=== PATIENT | male | born 1960 | race Caucasian/White ===

== ENCOUNTER 2018-12-31 13:40 | Emergency (ER) | payer BC, SELFPAY ==
[2018-12-31 13:41] VITALS: BP 151/86; PULSE 81; RESP 16; TEMP 36.6; O2SAT 97
[2018-12-31] MEDS: Cephalexin 500 MG CAP PO (13:59)
--- NOTE | 2018-12-31 14:27 | W.ED.GENAD ---
Discharge Plan Disposition Patient Disposition: HOME Condition: Improving Discharge Details Chief Complaint: Laceration Clinical Impression: Laceration of right thigh Primary Care Provider: Art Diego ED Provider: Juan Carlos Toro Home Meds and New Rx's Prescriptions: New cephalexin 500 mg capsule 500 mg PO TID 7 Days Qty: 21 RF: 0 Continued ibuprofen 200 MG capsule 1 - 3 cap PO TID PRN PRNRF: 0 acetaminophen 500 mg Tablet 1,000 mg PO PRN PRNRF: 0 Discharge Instructions Instructions: Laceration (ED) Additional Instructions: Please return in 10 to 12 days time for suture removal. Leave current dressing in place for 48 to 72 hours, then may remove, gently wash with soap and water, pat dry, replace dressing. Return if you develop a fever, redness, foul-smelling discharge from the wound or any other concerns. Medical Decision Making Otherwise healthy 58-year-old male was chain sawing in [facility] when the saw kicked and and lacerated his right medial thigh through the pant leg. He was not wearing chaps. Pressure dressing was placed at the scene with hemostasis achieved. Patient arrives to the ED with slight hypertension 151/86. He is neuro, vascular, motor intact. Tetanus updated. Patient given Keflex. The wound was anesthetized, irrigated cleansed with debridement of wound edges performed. The proximal component of the laceration is a Y-shaped, the distal more macerated and irregular. 22 interrupted 3-0 nylon sutures were placed with good wound edge apposition. Discussed with them the inherent risk of contamination, will place on 7 days of Keflex. He understands return precautions. Return in 10 to 12 days time for suture removal. He is stable and improved at this time HPI General Mode of arrival: ambulatory. Date/Time Provider Initiated Documentation: 12/31/18 13:40. Limitations to Documentation: no limitations. Information obtained by: patient. History of Present Illness 58 year old M presents to the emergency department with the chief complaint of Right thigh laceration from [employer], described as moderate, Quality is described as dull and constant, and is localized to the right and lower extremity. Patient reports no radiation. Patient started experiencing this minute(s) and it has been constant. No relieving factors improve symptom(s), No exacerbating factors reported . Patient notes other (No numbness, tingling, weakness of the extremity. Bleeding ceased with pressure at the scene. Tetanus out of date.). Patient did receive the following treatments prior to arrival, other (Pressure dressing) Related Data Home Medications Medication Instructions Recorded Confirmed ibuprofen 1 - 3 cap PO TID PRN PRN 01/23/17 01/26/17 acetaminophen 1,000 mg PO PRN PRN 12/31/18 12/31/18 cephalexin 500 mg PO TID 7 Days #21 cap 12/31/18 Previous Rx's Medication Instructions Recorded cephalexin 500 mg PO TID 7 Days #21 cap 12/31/18 Allergies Allergy/AdvReac Type Severity Reaction Status Date / Time fluoxetine [From Prozac] Allergy Unverified 12/31/18 13:45 General Stated Complaint: Laceration HENRIETTA: 3 Review of Systems Review of Systems Narrative: See HPI. No other injury. Tetanus out of date. 6 systems reviewed and negative [facility] Social History Smoking/Tobacco Use Status: Current every day Tobacco Type: smokeless tobacco Alcohol Intake: current Alcohol Intake frequency: a few times a week Drug use: Never Substance use type: does not use Do you feel safe at home: Yes Do you feel safe in your relationship?: Yes Exam Narrative Exam Narrative: GEN: awake, alert, oriented 3. Pleasant, well groomed, interactive. HEAD: Normocephalic, atraumatic ENT: Mucous membranes moist, oropharynx unremarkable, External ear exam unremarkable EYES: PERRL, EOMI NECK: Full ROM, no GENEVA, no menigismus CHEST/RESP: Nontender EXT: Full ROM, no edema, no rash. There is a macerated, wide, 20 cm laceration through the full depth of the dermis on the right medial thigh. Subcutaneous fat and muscle exposed, no evidence of neurovascular bundle involvement. Motor is 5 out of 5 throughout the bilateral lower extremity. Sensation intact throughout. Normal femoral pulses. Neuro: Grossly normal neurologic exam, conversant, interactive. Psych: Speech fluent, thoughts congruent, affect normal Course Vital Signs Vital signs: Vital Signs Temperature 36.6 C 12/31/18 13:41 Pulse 81 12/31/18 13:41 Respiratory Rate 16 12/31/18 13:41 Blood Pressure 151/86 H 12/31/18 13:41 Pulse Oximetry 97 12/31/18 13:41 Temperature 36.6 C 12/31/18 13:41 Temperature Source Skin 12/31/18 13:41 Pulse 81 12/31/18 13:41 Respiratory Rate 16 12/31/18 13:41 Respiratory Effort Non-Labored 12/31/18 13:44 Blood Pressure 151/86 H 12/31/18 13:41 Blood Pressure Position Sitting 12/31/18 13:41 Pulse Oximetry 97 12/31/18 13:41 Oxygen Delivery Method Room Air 12/31/18 13:41 Oxygen Flow Rate 0 12/31/18 13:41 Procedures Laceration Laceration 1: Site: lower extremity Side (If applicable): right Size (cm): 20 Description: irregular and contaminated Depth: involves muscle layer Local Anesthetic: Lidocaine 1% Amount of anesthesia used (mL): 10 Skin layer closed with: nylon Size (cm): 3-0 Number of sutures: 22 Technique: simple, interrupted
[2018-12-31 14:43] VITALS: BP 137/77; PULSE 67; RESP 18; O2SAT 96
== END 2018-12-31 14:39 | disposition home or self-care (01) ==
PROVIDERS: Emergency Provider Emergency Medicine; PCP Specialist/Technologist Athletic Trainer
DX: S71.111A Laceration without foreign body, right thigh, initial encounter (principal); W29.3XXA Contact with powered garden and outdoor hand tools and machinery, initial encounter
CPT/HCPCS: 12005; 90471; 99283

== ENCOUNTER 2019-01-10 15:18 | Emergency (ER) | payer BC, SELFPAY ==
[2019-01-10 15:20] VITALS: BP 142/89; PULSE 74; RESP 18; TEMP 36.6; O2SAT 97
--- NOTE | 2019-01-10 15:55 | ED.GENADUL_ITS ---
Discharge Plan Disposition Patient Disposition: HOME Condition: Good Discharge Details Chief Complaint: SutureRem Clinical Impression: Encounter for removal of sutures Primary Care Provider: Art Diego ED Provider: Rahul Gutierres Home Meds and New Rx's Prescriptions: No Action ibuprofen 200 MG capsule 1 - 3 cap PO TID PRN PRNRF: 0 acetaminophen 500 mg Tablet 1,000 mg PO PRN PRNRF: 0 Discharge Instructions Instructions: Stitches Removal (ED), Steristrips (ED) Additional Instructions: Continue to keep wound clean and dry and cover if going to be exposed to any dirty environment or situations. Return immediately to the emergency department for any signs of infection otherwise follow-up with your primary care provider as needed Referrals: Art Diego [Primary Care Provider] - (As needed for reassessment) Discharge Data Discharge Date/Time-TO BE ENTERED AT DEPARTURE: 01/10/19 16:07 Medical Decision Making Patient presenting the emergency department for suture removal. Patient had sutures placed approximately 12 days ago. Review of previous notes shows a left medial thigh laceration with 22 simple interrupted sutures placed. Wound appears healing well with no purulence, no dehiscence, no signs of infection. Sutures were all removed and patient tolerated removal appropriately. Patient was encouraged to watch for signs of infection. Due to 3 of the areas being a little bit deeper and not completely approximated with removal Steri-Strips were placed. After discussion of diagnosis and plan of care patient has no further needs, questions, or concerns and states clear understanding to return to the emergency department for any worsening symptoms. HPI General Mode of arrival: ambulatory . Date/Time Provider Initiated Documentation: 01/10/19 15:24 . Limitations to Documentation: no limitations . Information obtained by: patient, RN notes reviewed and old records reviewed . History of Present Illness 58 year old M presents to the emergency department with the chief complaint of Suture removal, Related Data Home Medications Medication Instructions Recorded Confirmed ibuprofen 1 - 3 cap PO TID PRN PRN 01/23/17 01/26/17 acetaminophen 1,000 mg PO PRN PRN 12/31/18 12/31/18 Allergies Allergy/AdvReac Type Severity Reaction Status Date / Time fluoxetine [From Prozac] Allergy Unverified 12/31/18 13:45 General Stated Complaint: SutureRem HENRIETTA: 5 Review of Systems Constitutional Constitutional: Denies chills and Denies fever(s) Musculoskeletal Musculoskeletal: Denies arthralgias Integumentary/Breasts Skin/Breast: Reports as per HPI, Denies rash and Denies skin swelling PFSH Social History Smoking/Tobacco Use Status: Current every day Tobacco Type: smokeless tobacco Alcohol Intake: current Alcohol Intake frequency: a few times a week Drug use: Never Substance use type: does not use Do you feel safe at home: Yes Do you feel safe in your relationship?: Yes Exam Const General: cooperative, comfortable and no acute distress Orientation: alert, awake and oriented x3 Skin Rashes: no rashes Trauma: laceration (Right thigh laceration without cellulitic erythema, purulence or dehiscence) Course Vital Signs Vital signs: Vital Signs Temperature 36.6 C 01/10/19 15:20 Pulse 74 01/10/19 15:20 Respiratory Rate 18 01/10/19 15:20 Blood Pressure 142/89 H 01/10/19 15:20 Pulse Oximetry 97 01/10/19 15:20 Temperature 36.6 C 01/10/19 15:20 Temperature Source Skin 01/10/19 15:20 Pulse 74 01/10/19 15:20 Respiratory Rate 18 01/10/19 15:20 Respiratory Effort Non-Labored 01/10/19 15:23 Blood Pressure 142/89 H 01/10/19 15:20 Blood Pressure Position Sitting 01/10/19 15:20 Pulse Oximetry 97 01/10/19 15:20 Oxygen Delivery Method Room Air 01/10/19 15:20 Oxygen Flow Rate 0 01/10/19 15:20
== END 2019-01-10 16:07 | disposition home or self-care (01) ==
PROVIDERS: Emergency Provider Nurse Practitioner Family; PCP Specialist/Technologist Athletic Trainer
DX: S71.112D Laceration without foreign body, left thigh, subsequent encounter (principal); W45.8XXD Other foreign body or object entering through skin, subsequent encounter; Z48.02 Encounter for removal of sutures

== ENCOUNTER 2019-01-17 15:04 | Outpatient (REF) | payer BC, SELFPAY ==
[2019-01-17 19:50] LABS: Anion Gap 12.6 mmol/L (3-11); BUN 16 mg/dL (7-18); CO2 24.4 mmol/L (21.0-32.0); CREATININE 1.11 mg/dL (0.70-1.30); Calcium 9.3 mg/dL (8.5-10.1); Calculated LDL 168 mg/dL; Chloride 104 mmol/L (98-107); Cholesterol 241 mg/dL (50-200); Glucose 98 mg/dL (70-100); HDL Cholesterol 39 mg/dL (40-60); Potassium 4.2 mmol/L (3.5-5.1); Sodium 141 mmol/L (136-145); Triglyceride 173 mg/dL (30-150)
== END 2019-01-17 15:24 ==
LOC: NCHCN 15:04
PROVIDERS: PCP Specialist/Technologist Athletic Trainer; Visit Provider Specialist/Technologist Athletic Trainer
DX: Z00.00 Encounter for general adult medical examination without abnormal findings (principal); H57.02 Anisocoria; M25.561 Pain in right knee; Z13.220 Encounter for screening for lipoid disorders
CPT/HCPCS: 80048; 80061

== ENCOUNTER 2019-12-27 09:43 | Outpatient (CLI) | payer BC, SELFPAY ==
--- NOTE | 2019-12-27 09:00 | DI.RAD_ITS ---
EXAM: XR KNEE RT 3V AP,LAT,CRISTA CLINICAL HISTORY: right knee pain TECHNIQUE: COMPARISON: CR XR KNEE LT 3V AP,LAT,CRISTA from 12/27/2019 FINDINGS: Three views were obtained. There is moderate narrowing of the medial tibiofemoral cartilaginous join t space with mild medial femoral subluxation of the femur on the tibia. There is mild subchondral sc lerosis of femoral condyle and tibial plateau medially. There is mild marginal osteophyte formation involving all joints of the knee. There appears to be moderate prepatellar soft tissue swelling. IMPRESSION: Moderate DJD predominantly involving medial tibiofemoral joint RADIATION DOSE DELIVERED: Total DLP
--- NOTE | 2019-12-27 09:00 | DI.RAD_ITS ---
EXAM: XR HIP RT COMPLETE AP PELVIS CLINICAL HISTORY: right hip pain TECHNIQUE: COMPARISON: CR XR HIP LEFT from 01/22/2019 FINDINGS: Two views were obtained. There is mild narrowing of the cartilaginous joint spaces of both hips. Pr ominent hypertrophic marginal osteophytes seen bilaterally involving femoral heads and acetabula mild subchondral sclerosis femoral heads and acetabula also noted. No evidence of acute fracture or dislocation. IMPRESSION: Moderate degenerative changes both hips RADIATION DOSE DELIVERED: Total DLP
--- NOTE | 2019-12-27 09:00 | DI.RAD_ITS ---
EXAM: XR KNEE LT 3V AP,LAT,CRISTA CLINICAL HISTORY: left knee pain TECHNIQUE: COMPARISON: CR RIGHT KNEE 3 VIEWS from 11/24/2011 FINDINGS: Three views were obtained. There is moderate narrowing of the medial tibiofemoral cartilaginous join t space with some flattening of the femoral condyle and question slight subchondral sclerosis. Other smith the bones the knee appear intact except for minimal marginal osteophyte formation at medial tibi ofemoral joint and patellofemoral joint. IMPRESSION: Mild degenerative changes predominantly involving medial tibiofemoral joint. RADIATION DOSE DELIVERED: Total DLP
== END 2019-12-27 10:03 ==
PROVIDERS: PCP Specialist/Technologist Athletic Trainer; Referring Provider Specialist/Technologist Athletic Trainer; Visit Provider Physician Assistant
DX: M17.0 Bilateral primary osteoarthritis of knee (principal); M16.0 Bilateral primary osteoarthritis of hip
CPT/HCPCS: 73562; 73502

== ENCOUNTER 2020-01-23 01:41 | Outpatient (CLI) | payer BC, SELFPAY ==
--- NOTE | 2020-01-23 08:00 | DI.RAD_ITS ---
EXAM: RF JOINT INJECTION FLUORO GUID CLINICAL HISTORY: R HIP INJ UNDER FLUORO,RT HIP PAIN,M25.551 TECHNIQUE: 2D and realtime digital imaging was performed. CONTRAST MATERIAL: Refer to procedure report. COMPARISON: No exams were available for comparison FINDINGS: Fluoroscopy was provided for Dr. Lisa during the performance of a left hip injection. Please re edward to the procedure report for complete details. Fluoro time: 6 seconds IMPRESSION:
--- NOTE | 2020-01-23 08:00 | DI.RAD_ITS ---
EXAM: RF JOINT INJECTION FLUORO GUID CLINICAL HISTORY: R HIP INJ UNDER FLUORO,RT HIP PAIN,M25.551 TECHNIQUE: 2D and realtime digital imaging was performed. CONTRAST MATERIAL: Refer to procedure report. COMPARISON: No exams were available for comparison FINDINGS: Fluoroscopy was provided for Dr. Lisa during the performance of a right hip injection. Please r efer to the procedure report for complete details. Fluoro time: 7 seconds IMPRESSION:
[2020-01-23] MEDS: Bupivacaine 0.5% Pres-Free 10 ML VIAL 5 ML IJ (15:08)
[2020-01-23] MEDS: methylPREDNISolone ACETATE 80 MG/ML VIAL IM (15:09)
[2020-01-23] MEDS: Omnipaque 300 MG/ML 10 ML BTL IJ (15:11)
--- NOTE | 2020-01-23 22:36 | OPPNE_ITS ---
Date of service: 01/23/20 Time of Service: 13:37 Procedure Note Date of procedure: 01/23/20 Procedure: Bilateral Hip Injection with Fluoroscopic Guidance Surgeon/Proceduralist/Physician: Miguel Angel Lisa Procedure Diagnosis: Bilateral Hip Osteoarthritis Procedure Indications: Jaron has had persistent pain of both hips and groins. Noninvasive measures have been tried. To serve as both diagnostic and therapeutic, an injection under fluoroscopy was recommended. I had discussed the risks of the procedure and the patient elected to proceed. Procedure Description: Jaron was greeted in the flouroscopy room. The correct side was identified and the consent was reviewed with the patient and signed. The patient was then placed in the supine position on the fluoroscopy table. The RIGHT hip was then prepped with Chloraprep. The anterolateral injection starting point was identiifed by bony landmarks and fluoroscopy. The skin and soft tissue in the tract of the injection was anesthetized with 1% Lidocaine. A spinal needle was then inserted deep into the hip joint at the level of the lateral femoral neck under fluoroscopic guidance. A small amount of Omnipaque solution was injected to confirm intraarticular placement. Once confirmed, the hip was injected with 6cc of 0.5% Bupivicaine and 80mg of Depo-Medrol. A bandaid was placed on the injection site. Then, the RIGHT hip was then prepped with Chloraprep. The anterolateral injection starting point was identiifed by bony landmarks and fluoroscopy. The skin and soft tissue in the tract of the injection was anesthetized with 1% Lidocaine. A spinal needle was then inserted deep into the hip joint at the level of the lateral femoral neck under fluoroscopic guidance. A small amount of Omnipaque solution was injected to confirm intraarticular placement. Once confirmed, the hip was injected with 6cc of 0.5% Bupivicaine and 80mg of Depo- Medrol. A bandaid was placed on the injection site. The patient tolerated the procedure well and noted improvement in pre-injection pain.
== END 2020-01-23 02:01 ==
PROVIDERS: PCP Nurse Practitioner Family; Visit Provider Student in an Organized Health Care Education/Training Program
DX: M25.552 Pain in left hip (principal); M25.551 Pain in right hip; M16.0 Bilateral primary osteoarthritis of hip; R10.31 Right lower quadrant pain; R10.32 Left lower quadrant pain
CPT/HCPCS: 20610 ×2; 77002; J1040

== ENCOUNTER 2020-02-27 13:29 | Outpatient (REF) | payer BC, SELFPAY ==
[2020-02-27 20:19] LABS: Anion Gap 9.8 mmol/L (3-11); BUN 9 mg/dL (7-18); CO2 30.2 mmol/L (21.0-32.0); Calcium 9.2 mg/dL (8.5-10.1); Calculated LDL 152 mg/dL (<100); Chloride 103 mmol/L (98-107); Cholesterol 252 mg/dL (<200); Glucose 124 mg/dL (74-106); HDL Cholesterol 35 mg/dL (40-60); Potassium 4.4 mmol/L (3.5-5.1); Sodium 143 mmol/L (136-145); Triglyceride 325 mg/dL (<150)
== END 2020-02-27 13:49 ==
LOC: NCHCN 13:29
PROVIDERS: PCP Nurse Practitioner Family; Visit Provider Nurse Practitioner Family
DX: Z00.00 Encounter for general adult medical examination without abnormal findings (principal); I10 Essential (primary) hypertension
CPT/HCPCS: 80048; 80061

== ENCOUNTER 2020-03-13 01:44 | Outpatient (CLI) | payer BC, SELFPAY ==
[2020-03-13 09:37] LABS: HCT 44.9 % (40.0-50.0); HGB 15.7 g/dL (13.5-17.5); MCH 30.8 pg (27.0-33.0); MPV 8.8 fL (8.0-11.0); Platelet Count 299 10^3/uL (130-400); RDW 12.2 % (11.8-14.1); RDW-SD 39.8 fL; WBC 7.32 10^3/uL (4.4-10.8)
[2020-03-13 11:02] LABS: BUN 15 mg/dL (7-18); Calcium 9.4 mg/dL (8.5-10.1); Chloride 101 mmol/L (98-107); Glucose 126 mg/dL (74-106); Potassium 4.1 mmol/L (3.5-5.1); Sodium 138 mmol/L (136-145)
[2020-03-14 17:07] LABS: COVID-19 RT-PCR Result NEGATIVE (Negative)
== END 2020-03-13 02:04 ==
PROVIDERS: PCP Nurse Practitioner Family; Visit Provider Student in an Organized Health Care Education/Training Program
DX: M25.562 Pain in left knee (principal); M17.12 Unilateral primary osteoarthritis, left knee; Z11.59 Encounter for screening for other viral diseases; Z01.818 Encounter for other preprocedural examination; Z01.812 Encounter for preprocedural laboratory examination
CPT/HCPCS: 36415; 80048; 85027; U0003

== ENCOUNTER 2020-03-17 08:58 | Day surgery (SDC) | payer BC, SELFPAY ==
[2020-03-17] VITALS (10 sets, daily range): BP systolic 117–135; BP diastolic 73–93; PULSE 61–74; RESP 14–96; TEMP 36.4–36.8; O2SAT 95–97
--- NOTE | 2020-03-17 09:10 | DSE_ITS ---
Documented by User: [email or web address] Douglas 03/17/20 12:09 DS: Diagnosis Discharge Diagnosis (1) Left knee DJD: Status: Acute Discharge Plan Disposition Patient Disposition: HOME Condition: Good Discharge Details Reason For Visit: Left knee DJD Attending Provider: Miguel Angel Lisa Primary Care Provider: Elizabeth Lee Home Meds and New Rx's Prescriptions: New celecoxib [Celebrex] 200 mg capsule 200 mg PO BID Qty: 60 RF: 0 aspirin 81 mg tablet,delayed release (DR/EC) 81 mg PO BID 30 Days Qty: 60 RF: 0 acetaminophen 500 mg tablet 500 mg PO Q6H PRN (Reason: pain) Qty: 60 RF: 2 pantoprazole 40 mg tablet,delayed release (DR/EC) 40 mg PO DAILY 30 Days Qty: 30 RF: 0 docusate sodium [Colace] 100 mg capsule 100 mg PO BID Qty: 30 RF: 0 oxycodone 5 mg tablet 5 mg PO Q4H PRN (Reason: severe post-operative pain) Qty: 18 RF: 0 Continued chlorthalidone 25 mg tablet 12.5 mg PO DAILY RF: 0 cholecalciferol (vitamin D3) [Vitamin D3] 25 mcg (1,000 unit) tablet 1,000 unit PO DAILY RF: 0 Discontinued ibuprofen 200 MG capsule 1 - 3 cap PO TID PRN PRNRF: 0 acetaminophen 500 mg Tablet 1,000 mg PO PRN PRNRF: 0 Discharge Instructions Additional Instructions: Total Knee Discharge Instructions Activity: The most important activity is to walk. You should try to take short walks a few times a day. It is important that when resting you work on keeping the knee straight. Avoid putting a pillow behind the knee as this will encourage flexion. Work on range of motion exercises as provided by Physical Therapy. - You will also be provided a walker to ambulate. - Start outpatient physical therapy within 2 weeks. - You should wear the JAD hose on both legs for 2 weeks. - WALKER for discharge Dressing: Keep the surgical dressing in place for at least one week. After the first week it may be removed and replace with light gauze and tape or nothing. It may get wet after 3 days but avoid soaking the dressing. If it gets wet, just lightly pat dry. Medications: - You should take Tylenol and anti-inflammatory Celebrex as your primary pain control medications. If the Celebrex is too expensive or not covered, please call the office for another alternative (Advil/Ibuprofen or Naproxen/Aleve) - You have been prescribed a stronger pain medication Oxycodone for breakthrough pain, take as needed as prescribed. - You have also been prescribed a stomach acid reduction agent Pantoprozole to help reduce stomach acid and reflux. - You will be taking Aspirin 81mg twice a day for DVT prevention unless instructed otherwise. - If you have constipation you should take Colace (which was prescribed) or Miralax (which you may purchase [id number]). It takes most people 3-4 days to have a bowel movement. Follow-up: 2 weeks If you have any acute concerns or questions, please do not hesitate to contact the office at [phone]. You may contact Dr. Lisa with any questions after hours through the hospital at [phone] or on his cell phone at [phone]. Stand Alone Forms: Anes.Nerve Block Instructions, DSU Post op Instructions, Marc Smith (DSU) Referrals: Miguel Angel Lisa MD [ [facility] STAFF PHYSICIAN] - Activity:: Elevate Remove Dressings/Wound Care:: 72 hours Shower/Bathe:: 72 hours Diet:: As Tolerated Discharge Orders Discharge Orders: Discharge Order (Routine); Ordered 03/17/20 Ordered By: Miguel Angel Lisa [facility] Medical History Degenerative joint disease of left hip Degenerative joint disease of right hip Degenerative joint disease of right knee HTN (hypertension) Left knee DJD Surgical History Status post arthroscopy of right knee (05/2013) Dr. Rede Social History Smoking/Tobacco Use Status: Current every day Tobacco Type: smokeless tobacco Smoking risk assessment performed?: Yes Alcohol Intake: current Alcohol Intake frequency: a few times a week Drug use: Never Substance use type: does not use Do you feel safe at home: Yes Do you feel safe in your relationship?: Yes Documented by User: Miguel Angel Lisa MD 03/17/20 13:45 Date of service: 03/17/20 Time of Service: 13:44 Discharge Plan Disposition Patient Disposition: HOME Condition: Good Discharge Details Reason For Visit: Left knee DJD Attending Provider: Miguel Angel Lisa Primary Care Provider: Elizabeth Lee Home Meds and New Rx's Prescriptions: New celecoxib [Celebrex] 200 mg capsule 200 mg PO BID Qty: 60 RF: 0 aspirin 81 mg tablet,delayed release (DR/EC) 81 mg PO BID 30 Days Qty: 60 RF: 0 acetaminophen 500 mg tablet 500 mg PO Q6H PRN (Reason: pain) Qty: 60 RF: 2 pantoprazole 40 mg tablet,delayed release (DR/EC) 40 mg PO DAILY 30 Days Qty: 30 RF: 0 docusate sodium [Colace] 100 mg capsule 100 mg PO BID Qty: 30 RF: 0 oxycodone 5 mg tablet 5 mg PO Q4H PRN (Reason: severe post-operative pain) Qty: 18 RF: 0 Continued chlorthalidone 25 mg tablet 12.5 mg PO DAILY RF: 0 cholecalciferol (vitamin D3) [Vitamin D3] 25 mcg (1,000 unit) tablet 1,000 unit PO DAILY RF: 0 Discontinued ibuprofen 200 MG capsule 1 - 3 cap PO TID PRN PRNRF: 0 acetaminophen 500 mg Tablet 1,000 mg PO PRN PRNRF: 0 Discharge Instructions Additional Instructions: Total Knee Discharge Instructions Activity: The most important activity is to walk. You should try to take short walks a few times a day. It is important that when resting you work on keeping the knee straight. Avoid putting a pillow behind the knee as this will encourage flexion. Work on range of motion exercises as provided by Physical Therapy. - You will also be provided a walker to ambulate. - Start outpatient physical therapy within 2 weeks. - You should wear the JDA hose on both legs for 2 weeks. - WALKER for discharge Dressing: Keep the surgical dressing in place for at least one week. After the first week it may be removed and replace with light gauze and tape or nothing. It may get wet after 3 days but avoid soaking the dressing. If it gets wet, just lightly pat dry. Medications: - You should take Tylenol and anti-inflammatory Celebrex as your primary pain control medications. If the Celebrex is too expensive or not covered, please call the office for another alternative (Advil/Ibuprofen or Naproxen/Aleve) - You have been prescribed a stronger pain medication Oxycodone for breakthrough pain, take as needed as prescribed. - You have also been prescribed a stomach acid reduction agent Pantoprozole to help reduce stomach acid and reflux. - You will be taking Aspirin 81mg twice a day for DVT prevention unless instructed otherwise. - If you have constipation you should take Colace (which was prescribed) or Miralax (which you may purchase [id number]). It takes most people 3-4 days to have a bowel movement. Follow-up: 2 weeks If you have any acute concerns or questions, please do not hesitate to contact the office at [phone]. You may contact Dr. Lisa with any questions after hours through the hospital at [phone] or on his cell phone at [phone]. Stand Alone Forms: Anes.Nerve Block Instructions, DSU Post op Instructions, Marc Smith (DSU) Referrals: Miguel Angel Lisa MD [ [facility] STAFF PHYSICIAN] - Activity:: Elevate Remove Dressings/Wound Care:: 72 hours Shower/Bathe:: 72 hours Diet:: As Tolerated Discharge Orders Discharge Orders: Discharge Order (Routine); Ordered 03/17/20 Ordered By: Miguel Angel Lisa DS: Summary Status at Discharge Functional status at discharge: uses cane/walker Overall status at discharge: patient is progressing back to baseline Mental Status: mental status grossly normal Speech and Movement: speech and movement normal Mood: congruent mood Affect: normal affect Exam Psych Mental Status: mental status grossly normal Speech and Movement: speech and movement normal Mood: congruent mood Affect: normal affect [facility] Medical History Degenerative joint disease of left hip Degenerative joint disease of right hip Degenerative joint disease of right knee HTN (hypertension) Left knee DJD Surgical History Status post arthroscopy of right knee (05/2013) Dr. Reed Social History Smoking/Tobacco Use Status: Current every day Tobacco Type: smokeless tobacco Smoking risk assessment performed?: Yes Alcohol Intake: current Alcohol Intake frequency: a few times a week Drug use: Never Substance use type: does not use Do you feel safe at home: Yes Do you feel safe in your relationship?: Yes
[2020-03-17] MEDS: Gabapentin 300 MG CAP PO (09:30)
[2020-03-17] MEDS: Lactated Ringers 1,000 ML 30 ML IV (09:30)
[2020-03-17] MEDS: Acetaminophen 500 MG TAB 1000 MG PO ×2 (09:30→13:59)
[2020-03-17] MEDS: Celecoxib 200 MG CAP 400 MG PO (09:30)
[2020-03-17] MEDS: ceFAZolin 2 GM/50 ML BAG IVPB (10:18)
[2020-03-17] MEDS: Bupivacaine 0.25% Pres-Free 30 ML VIAL (10:38)
[2020-03-17] MEDS: Ketorolac 30 MG/ML VIAL (10:41)
[2020-03-17] MEDS: Normal Saline 20 ML VIAL (10:41)
--- NOTE | 2020-03-17 13:13 | IN_ITS ---
Date of service: 03/18/20 Time of Service: 13:13 PT Notes Visit Reasons: Left knee DJD Physical Therapy Inpatient Initial Evaluation Date: 03/18/2020 Referring Doctor: Miguel Angel Lisa MD PT Orders: PT CONSULT: Status post Ortho surgery Precautions: Fall. Standard. WBAT on L LE. Patient Profile/Admitting Diagnosis: A 59-year-old male with primary unilateral osteoarthritis of the left knee and is status post left knee total arthroplasty on postoperative day 0. 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 Reed Social History/Home Situation: Lives with in a private home with 4 steps to enter with bilateral rails. Indepednent with all aspects of ADLs prior to surgery. Equipment Owned/DME: Standard type walker Subjective: Reported mild lightheadedness upon standing up from edge of bed. Vital signs remained WNL as immediately cheked by Nurse Patience. Stated that he has a mild ache in the L knee with weight bearing. Denies any headache nor chest pain throughout. Objective: General Observation: Nurse Patience present throughout session. Cryocuff on L knee. RAMON wraps on L knee. Mental Status: Alert and oriented x 4 Pain: 1-2/10 at rest, 4/10 with weight bearing Vital Signs: WNL as closely monitored before, during and after PT session by Nurse Morin ROM: Right Upper Extremity: Shoulder Flexion WFL. Shoulder abduction WFL. Elbow flexion WFL. Wrist flexion WFL. Opening and closing of hand WFL. Left Upper Extremity: Shoulder Flexion WFL. Shoulder abduction WFL. Elbow flexion WFL. Wrist flexion WFL. Opening and closing of hand WFL. Right Lower Extremity: Hip flexion WFL. Hip abduction WFL. Knee flexion WFL. Ankle dorsiflexion WFL. Ankle plantarflexion WFL. Left Lower Extremity: Hip flexion WFL. Hip abduction WFL. Knee flexion 10 degrees to 100 degrees. Knee extension -10 degrees. Ankle dorsiflexion WFL. Ankle plantarflexion WFL. Strength: Right Upper Extremity: Shoulder flexors 5/5. Shoulder abductors 5/5. Elbow flexors 5/5. Elbow extensors 5/5. Manager Programming strong. Left Upper Extremity: Shoulder flexors 5/5. Shoulder abductors 5/5. Elbow flexors 5/5. Elbow extensors 5/5. Manager Programming strong. Right Lower Extremity: Hip flexors 4/5. Hip abductors 4/5. Knee flexors 3-/5. Knee extensors 3-/5. Ankle dorsiflexors 5/5. Ankle plantarflexors 5/5. Left Lower Extremity:Hip flexors 5/5. Hip abductors 5/5. Knee flexors 5/5. Knee extensors 5/5. Ankle dorsiflexors 5/5. Ankle plantarflexors 5/5. Sensation: Intact as to pain and pressure on bilateral lower extremities. Bed Mobility/Transfers: Supine to sit supervision Sit to supine supervision Sit to stand supervision Stand to sit supervision Bed to chair supervision Chair to bed supervision Gait: Guided patient through navigating level surfaces of about 150 feet using the FWW with SBA with minimal verbal cueing needed for safe gait pattern. Initially reported lightheadedeness upon standing up so patient was advised to do short distance ambulation inside room to reclining chair. THERA EX: Trained with seated level balance exercises consisting of LAQs x 10 and seated hip flexion x 10. Balance: Static Sitting: Normal Dynamic Sitting: Normal Static Standing: Fair Dynamic Standing: Fair Special Tests: Mobility Limitations Standardized Measure [facility] AM-PAC 6 clicks Basic Mobility Inpatient Short Form: Raw Score: 23 CMS Score: 11% deficit Informed Consent/Education: Patient instructed in purpose of PT consult and plan of care. Assessment: Jaron demonstrates functional mobility decline requiring the use of FWW for all mobility ADL performance, impaired balance, difficulty with walking and increased risk for falls due to postopertaive status. Patient presents with clinical signs and symptoms consistent with curre nt/admitting diagnoses that have resulted to mobility limitations, gait instability, generalized weakness, and impairment of motor control as demonstrated by the following impairment level findings: 1. Decreased strength to left knee major muscle groups 2. Impaired standing balance 3. Impaired activity tolerance 4. Limitation of joint range of motion in left knee Impairments are contributing to the following functional limitations: 1. Inability to safely ambulate without assistive device and physical assistance 2. Increase completion time for mobility ADL performance 3. Increased fall risk 4. Inability to negotiate steps alone safely Patient is assessed as a 09956 moderate complexity based on the following: History: 59-year-old male with impairment level findings, functional li mitations, and past medical history as indicated above Examination: Demonstrable impairment in strength, balance, and mobility level with underlying impairments and functional limitations as documented above Presentation:Evolving Decision Makin moderate complexity Goals: N/A. PT eval and 1 treatment session only for functional mobility training using a front wheeled walker as well as for HEP education. Plan of Care/Treatment Plan: 1-2x/day, 7 days/week x 1 week. Plan of care has been reviewed with the [employer]SEMBLER providing the service under Physical Therapy direction. Initiate Physical Therapy intervention for strengthening, bed mobility, transfers, gait, stairs, balance training, use of assistive device. DISCHARGE RECOMMENDATIONS: Home when medically cleared by orthopedic surgeon. OP PT services to facilitate return to premorbid independent level. TREATMENT CODE/TIME: 16862 x 25 minutes, 53007 x 17 minutes beginning at 13:13 PM. Thank you for the opportunity to participate in the care of this patient. Candace Valdivia PT, DPT, CLT [facility] [place], [place]
[2020-03-17] MEDS: oxyCODONE 5 MG TAB PO (13:59)
--- NOTE | 2020-03-17 16:52 | ROE_ITS ---
Date of service: 03/17/20 Time of Service: 10:52 Operative Note Operative Note DATE OF PROCEDURE: 03/17/20 PRE-OP DIAGNOSIS: Left Knee Osteoarthritis POST-OP DIAGNOSIS: same PROCEDURE: Left Total Knee Replacement SURGEON: Miguel Angel Lisa PATIENT ACCESS REPRESENTATIVE: Tiffany Fajardo ANESTHESIA: regional and spinal ESTIMATED BLOOD LOSS: 150 PATHOLOGY: none sent TOURNIQUET TIME: 0 COMPLICATIONS: None Patient was transported to: PACU Patient's condition: stable Implants: 1. Depuy Attune Cementless Cruciate Retaining Femoral Component, Size 6 Narrow 2. Depuy Attune Cementless Rotating Platform Tibial Component, Size 5 3. Depuy Attune 6x6mm CR/RP Poly 4. Depuy Attune Patellar Component, Size 35mm Indications: I have seen Jaron in clinic for symptoms of knee arthritis, confirmed with radiographic findings. Jaron has exhausted nonoperative methods and was having significant limitations in daily function and desired better function and less pain. I discussed the technical details of a knee replacement. I explained the risks of the procedure to include, but not limited to, bleeding, infection, pain, stiffness, fracture, damage to nerves and vessels, damage to muscles and tendons, loosening, need for repeat procedure, blood clot and cardiopulmonary demise. Despite these risks, he elected to proceed. Findings: There was significant signs of arthritis throughout the knee, most involving the medial compartment. Procedure Description: Jaron was greeted in the preoperative holding area where the correct side was identified and marked. The consent was reviewed with the patient and signed. The history and physical was updated. All questions were answered. Preoperative medications were administered: Acetaminophen 1000mg, Celebrex 400mg, and Gabapentin 300mg. An adductor canal block was then administered by the anesthesia team in the PACU. Plan was taken back to the operating room. A spinal anesthestic was then administered. The patient was placed into the supine position on the operating room table. A nonsterile tourniquet was placed high onto the leg but only used for cementing. Posts were placed for positioning during the procedure. All bony prominences were well padded. Prophylactic antibiotics in the form of cefazolin were administered. 1g of Tranxemic Acid was given intravenously within 30 minutes of incision. The left leg was then prepped with Chloraprep a nd draped in a standard fashion with impervious stockinette. A second prep with Chloraprep was performed prior to application of Iodine impregnated skin protection. A timeout to confirm correct identity, side and site, procedure, allergies, anesthesia, and medical concerns was performed. With the knee in some flexion, a midline incision was made overlying the knee. Full thickness skin flaps were raised once the extensor mechanism was encountered. These were raised medially and laterally. Any bleeding was controlled with electrocautery. Once the extensor mechanism was fully exposed, a medial parapatellar arthrotomy was performed in a flexed position. All bleeding from the arthrotomy and the geniculate arteries was coagulated. A medial subperiosteal peel was performed with electrocautery to the midcoronal plane. Due to the significant varus deformity the entire medial tibial plateau was exposed. The fat pad was removed while keeping the patellar tendon protected. The anterior distal femur synovium was removed for later visualization. The ACL and PCL were resected and the anterior horn of the lateral meniscus was transected. The knee was then flexed with the patella everted. Large osteophytes from the tibia were removed. Large osteophytes from the femur were removed. Using a step drill, and based on preoperative templating, the femoral canal was entered. This was done with a step drill without any difficulty. The intramedullary distal femoral cut guide was inserted, set to a 5 degree valgus cut and 9 mm cut thickness. The distal femoral cut guide was then held in position and pinned. With the soft tissues protected, the distal cut was performed. This was passed over a few times to ensure a planar cut. I then turned attention to the tibia. The extramedullary guide was placed onto the leg. The distal aspect was slid medial to adjust for position of center of ankle and stay in line with shaft of the tibia. Approximately 3-5 degrees of posterior slope was kept in the proximal cutting guide. The center of the guide was aligned with the PCL. The stylus was used to assess cut thickness. The medial side, most involved side, was set for a 3mm cut corresponded to 9 mm laterally. This was then held in position and pinned into place with 2 additional pins and a cross pin for stability. The medial and lateral collateral ligaments were protected and the cut was performed. With this completed, it was assessed and noted to be of appropriate dimensions. The guide was removed. A spacer block was inserted and the knee was brought into extension. The 6mm spacer block provided full extension, without hyperextension and with stability of both the medial and lateral collateral ligaments was assessed. The pins from the femur and the tibi a were then removed. The distal femur was then sized. The anterior stylus was placed onto the lateral ridge of the anterior femur. This indicated a size 6 narrow femur. The external rotation of the guide was adjusted to 3 degrees to match the epicondylar axis, perpendicular to Ilan?s line. The 4-in-1 cutting guide was the placed. The posterior medial femur cut was evaluated and appeared of good thickness. The spacer block was inserted underneath the cutting guide and stability was confirmed in 90 degrees of flexion. An nikkie wing was used to confirm appropriate position of the anterior cut to avoid notching. This cutting guide was ensured to be flush on the cut surface and then pinned into place with headed pins. While protecting the soft tissues, quad tendon, and collateral ligaments, the anterior and posterior cuts were performed with a saw. The central two pins were removed and the posterior and anterior chamfers were cut next. The notch-cutting guide was placed. This was pinned to lateralize the femoral component as much as possible while keeping it flush on the cut surface. This was then pinned into position. A reciprocating saw was used to make the notch cut. A rasp smoothed the cut surfaces. The medial and lateral menisci were removed. A trial femoral component was then inserted, impacted down to the cut surfaces, and the lug holes were drilled. A provisional trial tibial component was placed and the knee was brought through range of motion. There was noted to be excellent extension and flexion. There was no significant instability. The patella was tracking without thumbs. A size 6mm polyethylene component provided the best range of motion and stability with less than 2mm gapping with medial and lateral stress and full extension without significant hyperextension. The tibial cut surface was fully exposed. The tibia was then sized as a 5. The tibia had been previously marked during trialing to correspond to the center of the tibial component to help with rotation. The trial was aligned to this tiffany, approximately rotated to the medial 1/3rd of the tibial tubercle. The trial was pinned into place. The tibia was prepared with a reamer and a keel punch and lug holes. The knee was then brought into extension and the patella was measured as 28 mm. Using the patellar clamp and cut guide, this was resected to a flat surface with at least 13mm of thickness remaining. The size 35 patella fit the best. This was oriented and then clamped into position. The lugs were drilled. The trial components were removed. The final components were opened on the back table. The periosteal and capsular tissues, especially posteriorly, around the knee were then systematically injected with a periarticular cocktail consisting of 50cc 0.25% Marcaine, 30mg Ketorolac, 20cc of Exparal and 50cc of injectable saline. The knee was thoroughly irrigated with a pulse lavage and dried. Irrisept was also used to irrigate the tissues. On the back table, with the implants opened, the cement was mixed. One batche of high viscosity cement were prepared with vacuum assistance. After the cement was ready a small amount was placed on the cut surface of the patella and the patellar button was clamped into position and held. During this process attention was turned to the gutters of the knee and for all interfaces for any excess cement. While the cement was hardening, the cementless knee components were placed. Starting with the tibial component, the tibia was subluxed anteriorly and the lug holes of the component were lined up. The tibia was then impacted with an impactor and mallet until the tibial component was in contact with the tibia. The final polyethylene component was inserted. Then, the femoral component was inserted. The lug holes were aligned and the component was impacted into position. The knee was irrigated with Irrisept chlorhexadine solution. This was allowed to sit in the knee for 3 minutes. After the cement had finally cured, approximately 15min, the clamp was removed from the patella and the knee was taken through range of motion. The patella was tracking with a no-thumbs technique. The capsule was then reapproximated with a No. 1 Vicryl at multiple locations. The capsule was finally closed with a No. 2 Stratafix, barbed suture. The tourniquet was then released and the arthrotomy appeared watertight without significant bleeding. The second dosing of 1g TXA was started. Deep tissues were then reapproximated with 0 Vicryl and 2-0 Vicryl. The skin was closed with a running 3-0 Monocryl in a subcuticular fashion. This was reinforced with skin glue. A Mepilex silver dressing was applied along with a [id number] RAMON wrap. A CryoCuff was applied. Jaron was transferred to the hospital bed without difficulty an suffering no apparent complication. Jaron has a good prognosis. Physical therapy will start today and without restrictions, weight-bearing as tolerated. Aspirin 81mg BID will be used for DVT prophylaxis.
== END 2020-03-17 15:00 | disposition home or self-care (01) ==
PROVIDERS: PCP Nurse Practitioner Family; Visit Provider Student in an Organized Health Care Education/Training Program
PROC: (CPT 27447; principal; 2020-03-17 11:00)
DX: M17.12 Unilateral primary osteoarthritis, left knee (principal)
CPT/HCPCS: 27447; 76942; 97162; 97530; NC; J0690; J1885; J2001; J2250

== ENCOUNTER 2020-03-30 11:22 | Outpatient (CLI) | payer BC, SELFPAY ==
--- NOTE | 2020-03-30 09:15 | DI.RAD_ITS ---
EXAM: XR STANDING ALIGNMENT and XR knee LT 1 V CLINICAL HISTORY: 1ST POT OP L TKA. TECHNIQUE: 2D digital imaging was performed. COMPARISON: CR XR KNEE RT 3V AP,LAT,CRISTA from 12/27/2019 CR XR KNEE LT 3V AP,LAT,CRISTA from 12/27/2019 FINDINGS: Moderate degenerative changes are seen in the right hip and moderately severe degenerative changes ar e seen in the left hip. Findings are characterized by joint space narrowing and periarticular spurri ng. Since the prior examination the patient has undergone a left total knee replacement. The orthop edic hardware appears in good position. No evidence of hardware failure is seen. There is a joint e ffusion and mild soft tissue swelling anteriorly. Stable moderate degenerative changes are seen in t he right knee particularly the medial femoral tibial joint. The ankles are well maintained. The rig ht lower extremity measures 90.7 cm. The left lower extremity measures 90.3 cm. IMPRESSION: 1. Status post left TKR. 2. Stable degenerative changes in the right knee. DATA REPOSITORY: RADIATION DOSE DELIVERED:
== END 2020-03-30 11:42 ==
PROVIDERS: PCP Nurse Practitioner Family; Visit Provider Physician Assistant
DX: Z96.652 Presence of left artificial knee joint (principal); M17.11 Unilateral primary osteoarthritis, right knee; M16.11 Unilateral primary osteoarthritis, right hip
CPT/HCPCS: 73560; 77073

== ENCOUNTER 2020-05-21 10:42 | Outpatient (CLI) | payer BC, SELFPAY ==
--- NOTE | 2020-05-21 10:30 | DI.RAD_ITS ---
EXAM: XR KNEE LT 3V AP,LAT,CRISTA INDICATION: f/u L TKA with new lateral pain. COMPARISON: CR XR KNEE LT 3V AP,LAT,CRISTA from 12/27/2019 CR XR KNEE LT 3V AP,LAT,CRISTA from 12/27/2019 CR XR STANDING ALIGNMENT from 03/30/2020 CR XR KNEE LT 1V from 03/30/2020 CR XR STANDING ALIGNMENT from 03/30/2020 TECHNIQUE: 2D digital imaging was performed. FINDINGS: There has been no change in the alignment of the total knee prosthesis. No abnormal bony lucencies a re seen. There is some anterior soft tissue swelling. A posterior loose body is seen which is like ly within a Bailey's cyst. DATA REPOSITORY: RADIATION DOSE DELIVERED:
== END 2020-05-21 10:43 | disposition home or self-care (01) ==
LOC: DIORS 10:42
PROVIDERS: PCP Nurse Practitioner Family; Referring Provider Nurse Practitioner Family; Visit Provider Student in an Organized Health Care Education/Training Program
DX: M25.562 Pain in left knee (principal); Z96.652 Presence of left artificial knee joint
CPT/HCPCS: 73562

== ENCOUNTER 2020-07-13 04:08 | Outpatient (CLI) | payer BC, SELFPAY ==
[2020-07-13 12:06] LABS: Source Nasal/Nares
[2020-07-13 17:16] LABS: COVID-19 PCR Negative (Negative)
== END 2020-07-13 04:09 | disposition home or self-care (01) ==
LOC: LBO 04:09
PROVIDERS: PCP Nurse Practitioner Family; Visit Provider Student in an Organized Health Care Education/Training Program
DX: Z20.822 Contact with and (suspected) exposure to COVID-19 (principal); Z01.818 Encounter for other preprocedural examination
CPT/HCPCS: 87635

== ENCOUNTER 2020-07-15 08:54 | Day surgery (SDC) | payer BC, SELFPAY ==
[2020-07-15 09:06] VITALS: BP 135/94; PULSE 78; RESP 18; TEMP 36; O2SAT 98
[2020-07-15] MEDS: Lactated Ringers 1,000 ML 80 ML IV (09:51)
--- NOTE | 2020-07-15 10:28 | W.PM.DSUDISC ---
Discharge Plan Disposition Patient Disposition: HOME Condition: Good Discharge Details Reason For Visit: Left Knee arthroscopy Attending Provider: Miguel Angel Lisa Primary Care Provider: Elizabeth Lee Home Meds and New Rx's Prescriptions: New hydrocodone-acetaminophen 5-325 mg tablet 1 tab PO Q6H PRN (Reason: pain) Qty: 10 RF: 0 ibuprofen 600 mg tablet 600 mg PO TID PRN (Reason: pain) Qty: 30 RF: 0 acetaminophen 500 mg capsule 1,000 mg PO Q8H PRN PRNQty: 90 RF: 0 Continued chlorthalidone 25 mg tablet 12.5 mg PO DAILY RF: 0 cholecalciferol (vitamin D3) [Vitamin D3] 25 mcg (1,000 unit) tablet 1,000 unit PO DAILY RF: 0 Discontinued acetaminophen 500 mg tablet 500 mg PO Q6H PRN (Reason: pain) Qty: 60 RF: 2 Discharge Instructions Stand Alone Forms: [facility] Referrals: Miguel Angel Lisa MD [ [facility] STAFF PHYSICIAN] - Equipment/Supplies: Partial Weight Bearing Crutches Activity:: Activity as Tolerated Remove Dressings/Wound Care:: 72 hours Shower/Bathe:: 72 hours Diet:: As Tolerated Discharge Orders Discharge Orders: Discharge Order (Routine); Ordered 07/15/20 Ordered By: Jayce Fajardo DS: Diagnosis Discharge Diagnosis (1) Painful total knee replacement, left: Status: Acute
[2020-07-15] MEDS: ceFAZolin 2 GM/50 ML BAG IVPB (11:10)
[2020-07-15] MEDS: methylPREDNISolone ACETATE 80 MG/ML VIAL (11:19)
[2020-07-15] MEDS: Bupivacaine 0.25% Pres-Free 30 ML VIAL (11:55)
[2020-07-15 12:05] VITALS: BP 110/74; PULSE 79; RESP 19; TEMP 36.3; O2SAT 91
[2020-07-15 12:10] VITALS: BP 112/77; PULSE 63; RESP 17; O2SAT 94
[2020-07-15 12:15] VITALS: BP 120/86; PULSE 62; RESP 17; O2SAT 94
[2020-07-15 12:20] VITALS: BP 122/81; PULSE 62; RESP 18; TEMP 36.3; O2SAT 95
[2020-07-15 13:14] VITALS: BP 123/86; PULSE 65; RESP 18; TEMP 36.4; O2SAT 100
[2020-07-15] MEDS: HYDROcodone 5/Acetaminophen 325 TAB PO (13:53)
--- NOTE | 2020-07-15 21:59 | ROE_ITS ---
Date of service: 07/15/20 Time of Service: 12:22 Operative Note Operative Note DATE OF PROCEDURE: 07/16/20 PRE-OP DIAGNOSIS: Pain after Left Total Knee Arthroplasty POST-OP DIAGNOSIS: same PROCEDURE: Left knee arthroscopic synovectomy and partial IT band release SURGEON: Miguel Angel Lisa ANESTHESIA TYPE: Spinal Refer to Anesthesia Record ESTIMATED BLOOD LOSS: 5 PATHOLOGY: none sent TOURNIQUET TIME: 0 COMPLICATIONS: None Patient was transported to: PACU Patient's condition: stable Indications: I have seen Jaron in clinic for focal pain over the lateral aspect of his knee after knee replacement. He has been diligent with physical therapy. A selective injection of the IT band did provide some relief, although short- lived. His overall function of the knee is reported as being quite good except for a pinpoint pain over the lateral aspect of the knee associated with the anterior border of the IT band. Given a failure of these conservative options, I did offer an arthroscopic synovectomy with possible IT band release arthroscopically. I reviewed the risks of the procedure to include, but not limited to, bleeding, infection, pain, stiffness, damage to nerves or vessels, recurrence, blood clot. Despite these risks, the patient elected to proceed. Findings: Throughout the knee, there is only some minimal scarring and adhesions. The synovium was thickened as to be expected after the surgery. I released the adhesions in the suprapatellar pouch and along the lateral gutter. In the lateral gutter there were frayed tissue suggestive of irritation. This synovium in the area was resected fully and a portion IT band was partially incised to lengthen the IT band and release of pressure from the lateral femur. Procedure Description: Jaron was greeted in the preoperative holding area where the correct side was identified and marked. The consent was reviewed with the patient and signed. The history and physical was updated. All questions were answered. Jaron was taken back to the operating room. A spinal anesthetic was administered. Then, the patient was placed into the supine position on the operating room table. All bony prominences were well padded. Prophylactic antibiotics in the form of cefazolin were administered. The left leg was then prepped with Chloraprep and draped in a standard fashion with stockinette and extremity drape. A timeout to confirm correct identity, side and site, procedure, allergies, anesthesia, and medical concerns was performed. The leg was placed into a pneumatic leg tsai, SPIDER2. A standard lateral portal was made at the lateral border of the patella tendon in line with the inferior pole of the patella, soft spot. The skin and deep tissue was incised sharply and the blunt trochar was inserted atraumatically. A diagnostic arthroscopy was performed briefly. There were no significant abnormalities identified. The suprapatellar pouch, while it had some scarring, was quite open. There was notable synovitis in the lateral compartment. The medial compartment was briefly inspected and showed no significant signs of inflammation. Given that his symptoms are all laterally, I did not proceed medially. I established a superolateral portal under spinal needle localization. This became the working portal primarily. Starting the suprapatellar pouch I released some of the synovium and scar tissue seen between the extensor mechanism and the anterior femur. There was a minor amount which was released. As I progressed down to the lateral gutter there is definitely more synovitis seen in this area. There is some fraying of the tissue as well suggestive of some irritation. Using both electrocautery and a shaver debrided down this scar tissue and synovium such that the lateral gutter was now recreated and I can see all the way around to the posterior lateral border of the polyethylene. I continued with electrocautery device to remove any scar tissue around the lateral joint. There was some imposed scar tissue seen laterally which was resected and removed. I continue to debride scar tissue such that I was able to see the tibial component. Once the tibial component was identified I then used the shaver to remove any loose edges and frayed tissue. I had previously marked on his skin where his point of maximal pain was which did correspond to the anterior border of the IT band. The IT band fibers were visible now from within the joint and I did a partial release of the IT band fibers using the electrocautery. Once again, I used the shaver to clean out any extra synovium and inflammatory tissue seen within the lateral gutter. Once completed, the gutter was clear. The knee was brought into flexion however, and given the congruity of the knee it made visualization difficult. However, as the knee is brought into 45 degrees of flexion there is noted to be no significant impingement along the lateral femur. The arthroscope was brought back into the suprapatellar pouch and the leg was in full extension. The knee was thoroughly irrigated with the arthroscopic fluid on high flow and pressure. Inflow was stopped and excess fluid was removed. The wounds were closed with 4-0 Nylon. They were dressed with Xeroform, 4x4 gauze, ABD pad, Kerlix and an RAMON wrap. A cryo-cuff was applied. The patient tolerated the procedure well and was returned to the Same Day Surgery area in a stable condition suffering no known complication.
== END 2020-07-15 14:25 | disposition home or self-care (01) ==
PROVIDERS: PCP Nurse Practitioner Family; Visit Provider Student in an Organized Health Care Education/Training Program
PROC: (CPT 29870; principal; 2020-07-15 11:30)
PROC: (CPT 27305; 2020-07-15 11:30)
DX: T84.84XA Pain due to internal orthopedic prosthetic devices, implants and grafts, initial encounter (principal); Z96.652 Presence of left artificial knee joint; M17.11 Unilateral primary osteoarthritis, right knee; M76.32 Iliotibial band syndrome, left leg
CPT/HCPCS: 27305; 29875; 20610; J0690; J1040; J2001; J2405; J2704

== ENCOUNTER 2020-08-31 14:26 | Outpatient (CLI) | payer BC, SELFPAY ==
--- NOTE | 2020-08-31 11:30 | DI.RAD_ITS ---
Exam(s) XR KNEE LT 3V AP,LAT,CRISTA EXAM: XR KNEE LT 3V AP,LAT,CRISTA CLINICAL HISTORY: IT band discomfort. TECHNIQUE: 2D digital imaging was performed. COMPARISON: CR XR KNEE LT 3V AP,LAT,CRISTA from 05/21/2020 FINDINGS: Three views of the left knee in compared to 05/21/2020 There is stable position alignment of the components of the prosthesis. No fracture or loosening danny dent. IMPRESSION: DATA REPOSITORY: RADIATION DOSE DELIVERED:
== END 2020-08-31 14:27 | disposition home or self-care (01) ==
LOC: DIORS 14:27
PROVIDERS: PCP Nurse Practitioner Family; Referring Provider Nurse Practitioner Family; Visit Provider Physician Assistant
DX: M25.562 Pain in left knee (principal); Z96.652 Presence of left artificial knee joint; M76.32 Iliotibial band syndrome, left leg
CPT/HCPCS: 73562

== ENCOUNTER 2021-02-11 01:36 | Outpatient (CLI) | payer BC, SELFPAY ==
[2021-02-11] MEDS: Omnipaque 300 MG/ML 10 ML BTL IJ ×2 (14:29→14:31)
[2021-02-11] MEDS: Bupivacaine 0.5% Pres-Free 10 ML VIAL 5 ML IJ ×2 (14:30→14:35)
[2021-02-11] MEDS: methylPREDNISolone ACETATE 80 MG/ML VIAL IM ×2 (14:30→14:32)
--- NOTE | 2021-02-11 14:30 | DI.RAD_ITS ---
Exam(s) RF JOINT INJECTION FLUORO GUID EXAM: RF JOINT INJECTION FLUORO GUID CLINICAL HISTORY: R HIP INJ UNDER FLUORO, RT HIP OA,M16.11,DEGENERATIVE RT HIP TECHNIQUE: Fluoroscopy provided. Radiologist not present. CONTRAST MATERIAL: None COMPARISON: No exams were available for comparison FINDINGS: Fluoroscopy was provided for Dr. Lisa during right hip therapeutic injection. Submitted image(s) reveal needle placement at the lateral aspect of the right femoral head. Intra-ar ticular contrast was injected Please refer to the procedure report for complete details. Cumulative Dose: maría Hinojosa=2.53 mGy IMPRESSION: RADIATION DOSE DELIVERED:
--- NOTE | 2021-02-11 14:36 | DI.RAD_ITS ---
Exam(s) RF JOINT INJECTION FLUORO GUID EXAM: RF JOINT INJECTION FLUORO GUID CLINICAL HISTORY: L HIP INJ UNDER FLUORO,LT HIP OA, M16.12,DEGENERATIVE JOINT DISEASE TECHNIQUE: Fluoroscopy provided. Radiologist not present. CONTRAST MATERIAL: None COMPARISON: No exams were available for comparison FINDINGS: Fluoroscopy was provided for Dr. Lisa during therapeutic left hip injection. Submitted image(s) reveal needle placement lateral aspect of the femoral head. Contrast injected Please refer to the procedure report for complete details. Cumulative Dose: Kar=1.76 mGy IMPRESSION: RADIATION DOSE DELIVERED:
--- NOTE | 2021-02-11 22:22 | OPPNE_ITS ---
Date of service: 02/11/21 Time of Service: 14:32 Procedure Note Date of procedure: 02/11/21 Procedure: Bilateral Hip Injection with Fluoroscopic Guidance Surgeon/Proceduralist/Physician: Miguel Angel Lisa Procedure Diagnosis: Hip Osteoarthritis Procedure Indications: Jaron has had persistent pain of both hips. Noninvasive measures have been tried. To serve as both diagnostic and therapeutic, an injection under fluoroscopy was recommended. I had discussed the risks of the procedure and the patient elected to proceed. Procedure Description: Jaron was greeted in the flouroscopy room. The correct side was identified and the consent was reviewed with the patient and signed. The patient was then placed in the supine position on the fluoroscopy table. The RIGHT hip was then prepped with Chloraprep. The anterolateral injection starting point was identiifed by bony landmarks and fluoroscopy. The skin and soft tissue in the tract of the injection was anesthetized with 1% Lidocaine. A spinal needle was then inserted deep into the hip joint at the level of the lateral femoral neck under fluoroscopic guidance. A small amount of Omnipaque solution was injected to confirm intraarticular placement. Once confirmed, the hip was injected with 5cc of 0.5% Bupivicaine and 80mg of Depo-Medrol. A bandaid was placed on the injection site. Attention was then turned to the LEFT hip. The LEFT hip was then prepped with Chloraprep. The anterolateral injection starting point was identiifed by bony landmarks and fluoroscopy. The skin and soft tissue in the tract of the injection was anesthetized with 1% Lidocaine. A spinal needle was then inserted deep into the hip joint at the level of the lateral femoral neck under fl uoroscopic guidance. A small amount of Omnipaque solution was injected to confirm intraarticular placement. Once confirmed, the hip was injected with 5cc of 0.5% Bupivicaine and 80mg of Depo-Medrol. A bandaid was placed on the injection site. The patient tolerated the procedure well and noted improvement in pre-injection pain.
== END 2021-02-11 01:56 ==
PROVIDERS: PCP Nurse Practitioner Family; Visit Provider Student in an Organized Health Care Education/Training Program
DX: M16.0 Bilateral primary osteoarthritis of hip (principal); M25.551 Pain in right hip; M25.552 Pain in left hip
CPT/HCPCS: 20610; 77002; J1040

== ENCOUNTER 2021-03-01 14:01 | Outpatient (REF) | payer BC, SELFPAY ==
[2021-03-01 19:41] LABS: Anion Gap 13.8 mmol/L (3-11); BUN 17 mg/dL (7-18); CO2 22.2 mmol/L (21.0-32.0); CREATININE 0.9 mg/dL (0.70-1.30); Calcium 8.5 mg/dL (8.5-10.1); Chloride 107 mmol/L (98-107); Glucose 161 mg/dL (74-106); Potassium 4.3 mmol/L (3.5-5.1); Sodium 143 mmol/L (136-145)
== END 2021-03-01 14:02 | disposition home or self-care (01) ==
LOC: NCHCN 14:01
PROVIDERS: PCP Nurse Practitioner Family; Visit Provider Nurse Practitioner Family
DX: I10 Essential (primary) hypertension (principal)
CPT/HCPCS: 80048

== ENCOUNTER 2021-03-08 02:42 | Outpatient (CLI) | payer BC, SELFPAY ==
[2021-03-08 11:03] LABS: Source Nasal/Nares
[2021-03-08 14:01] LABS: COVID-19 PCR Negative (Negative)
== END 2021-03-08 02:43 | disposition home or self-care (01) ==
LOC: LBO 02:43
PROVIDERS: PCP Nurse Practitioner Family; Visit Provider Student in an Organized Health Care Education/Training Program
DX: Z20.822 Contact with and (suspected) exposure to COVID-19 (principal)
CPT/HCPCS: 87635

== ENCOUNTER 2021-03-09 09:14 | Day surgery (SDC) | payer BC, SELFPAY ==
[2021-03-09] VITALS (8 sets, daily range): BP systolic 83–125; BP diastolic 58–85; PULSE 56–74; RESP 12–20; TEMP 36–36.7; O2SAT 96–98; BMI 30.3
--- NOTE | 2021-03-09 09:53 | W.ANESPRE ---
General Info Date of Service Date Performed: 03/09/21 Height: 5 ft 7 in Weight: 87.9 kg Body Mass Index (BMI): 30.3 Surgical Procedure: Operation Date: 03/09/21 12:40 Proposed Procedures Side Surgeon p hip distal IT Band Lengthening Left Miguel Angel Lisa MD Meds Allergies and Home Medications Allergies Allergy/AdvReac Type Severity Reaction Status Date / Time fluoxetine [From Prozac] Allergy sweating Unverified 03/09/21 09:47 Home Medication Medication Instructions Recorded acetaminophen 1,000 mg PO Q8H PRN PRN #90 cap 07/15/20 ibuprofen 600 mg tablet 600 mg PO TID PRN #30 tab 08/19/20 losartan 50 mg PO DAILY 03/08/21 rosuvastatin 10 mg PO DAILY 03/08/21 Current Visit Medications: Current Medications Generic Name Dose Route Start Last Admin Trade Name Freq PRN Reason Stop Dose Admin Acetaminophen 1,000 mg 03/09/21 06:00 Acetaminophen 500 Mg Tab PO 03/09/21 16:00 PREOP [place] Celecoxib 400 mg 03/09/21 06:00 Celecoxib 200 Mg Cap PO 03/09/21 16:00 PREOP [place] Gabapentin 300 mg 03/09/21 06:00 Gabapentin 300 Mg Cap PO 03/09/21 16:00 PREOP [place] Ringer's Solution 1,000 mls @ 80 mls/hr 03/09/21 06:00 IV 04/07/21 23:59 [facility] IV Miscellaneous Supplies 1 each 03/09/21 06:00 Iv Access IV 04/07/21 23:59 DIRECTED [place] Sodium Chloride 0 ml 03/09/21 06:00 Normal Saline Flush 10 Ml Syr IV 04/07/21 23:59 PRN PRN Sodium Chloride 0 ml 03/09/21 06:00 Normal Saline 10 Ml Vial IJ 04/07/21 23:59 DIRECTED PRN Sterile Water 0 ml 03/09/21 06:00 Water,Injection,Sterile 10 Ml Vial IJ 04/07/21 23:59 DIRECTED PRN PFSH Active Problems Active Problems: Problem Status Onset Code 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.11 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 states he was taking a lot of ibuprofen r/t to the ITB and started to have some hematuria (3-4 weks ago 01/2021), so he stopped the IBU and the hematuria stopped. Pt. stated she informed the pt. PCP. HTN (hypertension) Left knee DJD s/p left TKA Surgical History Surgical History Status post arthroscopy of right knee (05/2013) Dr. Reed Tobacco Smoking/Tobacco Use Status: Current every day Tobacco Type: smokeless tobacco Alcohol Alcohol Intake: current Alcohol intake frequency: a few times a week Alcohol type: beer and hard liquor Substance Use Substance use: Never Substance use type: does not use Vital Signs and Lab Results Vital Signs Most Recent Vital Signs in EMR: Most Recent Vital Signs Temp Pulse Resp BP Pulse Ox 36.7 C 73 18 125/85 97 03/09/21 09:34 03/09/21 09:34 03/09/21 09:34 03/09/21 09:34 03/09/21 09:34 Lab Results Blood Type / Crossmatch: No Data to Display Complete Blood Count: No Data to Display Complete Metabolic Panel: Sodium Level 143 mmol/L (136-145) 03/01/21 16:35 03/01/21 Potassium Level 4.3 mmol/L (3.5-5.1) 03/01/21 16:35 03/01/21 Chloride Level 107 mmol/L (98-107) 03/01/21 16:35 03/01/21 Carbon Dioxide Level 22.2 mmol/L (21.0-32.0) 03/01/21 16:35 03/01/21 Blood Urea Nitrogen 17 mg/dL (7-18) 03/01/21 16:35 03/01/21 Creatinine 0.9 mg/dL (0.70-1.30) 03/01/21 16:35 03/01/21 Estimated GFR/1.73 m2 >= 60.00 (mL/min/1.73m2) 03/01/21 16:35 03/01/21 Calcium Level 8.5 mg/dL (8.5-10.1) 03/01/21 16:35 03/01/21 Glucose Level 161 mg/dL (74-106) H 03/01/21 16:35 03/01/21 Liver Function Panel: No Data to Display Coagulation Panel: No Data to Display Cardiac Panel: No Data to Display Arterial Blood Gas: No Data to Display Venous Blood Gas: No Data to Display Pancreas Panel: No Data to Display Thyroid Panel: No Data to Display Infectious Disease: Coronavirus (COVID-19)(PCR) Negative (Negative) 03/08/21 09:37 03/08/21 Coronavirus 2019 Source Nasal/Nares 03/08/21 09:37 03/08/21 Blood Cultures: No Data to Display Toxicology Panel: No Data to Display Anesthesia Assessment and Plan Anesthesia History Personal History: No History of Anesthesia Complications Family History: No Family History of Anesthesia Complications Exercise Tolerance Exercise Tolerance: Metabolic Equivalents>4 Pertinent Negatives Pertinent Negatives: No Symptoms of GERD, No Major Cardiovascular Symptoms or Complaints and No Major Pulmonary Symptoms or Complaints Cardiac & Pulmonary Exam Cardiac Exam: Normal S1/S2 Heart Sounds Pulmonary Exam: Clear Bilateral Breath Sounds Implantable Cardiac Device Does patient have a Pacemaker or an ICD?: No Airway Exam Known Difficult Airway: No Mallampati Class: 3 Mouth Opening: Normal (> 3cm) Thyromental Distance: Greater than 3 cm Neck Range of Motion: Full ROM Neck Circumference: Normal Teeth Condition: Normal Dentition ASA Classification ASA Score: ASA 2 Emergency Case?: No NPO Status NPO Status: NPO Clears >2 hours, Solids >8 hours Anesthesia Plan Resuscitation Status: Full Code Anesthesia Technique: General Anesthesia Airway Planned: LMA Monitors Used: Standard Monitors
[2021-03-09] MEDS: Lactated Ringers 1,000 ML 80 ML IV (10:12)
[2021-03-09] MEDS: Celecoxib 200 MG CAP 400 MG PO (10:20)
[2021-03-09] MEDS: Acetaminophen 500 MG TAB 1000 MG PO (10:20)
[2021-03-09] MEDS: Gabapentin 300 MG CAP PO (10:21)
[2021-03-09] MEDS: Bupivacaine 0.25% Pres-Free 30 ML VIAL (11:30)
--- NOTE | 2021-03-09 11:49 | W.PM.DSUDISC ---
Discharge Plan Disposition Patient Disposition: HOME Condition: Good Discharge Details Reason For Visit: Distal IT band lengthening Attending Provider: Miguel Angel Lisa Primary Care Provider: Elizabeth Lee Home Meds and New Rx's Prescriptions: New acetaminophen 500 mg tablet 1,000 mg PO TID Qty: 90 RF: 0 hydrocodone-acetaminophen 5-325 mg tablet 1 tab PO Q6H PRN (Reason: pain) Qty: 6 RF: 0 ibuprofen 600 mg tablet 600 mg PO TID PRN (Reason: pain) Qty: 90 RF: 0 Continued losartan 50 mg tablet 50 mg PO DAILY RF: 0 rosuvastatin 10 mg tablet 10 mg PO DAILY RF: 0 Discontinued ibuprofen 600 mg tablet 600 mg PO TID PRN (Reason: pain) Qty: 30 RF: 0 acetaminophen 500 mg capsule 1,000 mg PO Q8H PRN PRNQty: 90 RF: 0 Discharge Instructions Additional Instructions: IT Band Lengthening Discharge Instructions Activity: You may move and walk as tolerated but always use two crutches or a walker until instructed otherwise. You should try to take short walks a few times a day. You have no restrictions on movement or positioning, but do not try to force what you do. You will find some stiffness and weakness. Do not try to strengthen this too early, continue to practice walking. - Outpatient physical therapy can be helpful to help return you to a normal gait and improve your flexibility and strength. This can start around 2 weeks. For some patients, it?s not necessary. Usually this is determined at the time of discharge or at the first post-operative visit. Dressing: Keep the surgical dressing in place for at least one week. After the first week it may be removed and replace with light gauze and tape or nothing. It may get wet after 3 days but avoid soaking the dressing. If it gets wet, just lightly pat dry. Medications: - You should take Tylenol and an anti-inflammatory ibuprofen as your primary pain control medications - You have been prescribed a stronger pain medication Hydrocodone for breakthrough pain, take as needed as prescribed. - If you have constipation you should take Colace or Miralax (both [id number]). It takes most people 3-4 days to have a bowel movement. Follow-up: 2 weeks Referrals: Miguel Angel Lisa MD [ [facility] STAFF PHYSICIAN] - Equipment/Supplies: Partial Weight Bearing Crutches Activity:: Activity as Tolerated Shower/Bathe:: 72 hours Diet:: As Tolerated Discharge Orders Discharge Orders: Discharge Order (Routine); Ordered 03/09/21 Ordered By: Jayce Fajardo DS: Diagnosis Discharge Diagnosis (1) Iliotibial band syndrome, left leg: Status: Acute
--- NOTE | 2021-03-09 13:06 | ROE_ITS ---
Date of service: 03/09/21 Time of Service: 12:35 Operative Note Operative Note DATE OF PROCEDURE: 03/09/21 PRE-OP DIAGNOSIS: Left Distal IT Band Syndrome POST-OP DIAGNOSIS: same PROCEDURE: Left Distal Iliotibial Band Lengthening SURGEON: Miguel Angel Lisa E COMMERCE ANALYST: Jayce Fajardo ANESTHESIA TYPE: General LMA/ETT Refer to Anesthesia Record ESTIMATED BLOOD LOSS: 20 PATHOLOGY: none sent TOURNIQUET TIME: 0 COMPLICATIONS: None Patient was transported to: PACU Patient's condition: stable Indications: Jaron is a 60-year-old who is status post left knee replacement. He has had relief of his knee pain but is continued to have pain over the lateral femoral epicondyle and the lateral distal IT band. He has underwent injections which helped out with the pain but unfortunately returned. He has failed a host of nonoperative treatments and therefore I offered a distal iliotibial band lengthening. I reviewed the risk of the procedure with him to include bleeding, infection, pain, stiffness, recurrence, weakness, instability, damage to nerves and vessels, damage to muscles and tendons, and need for repeat procedures. Despite these risk, he elected to proceed. Findings: The iliotibial band was exquisitely tight. There is notable inflammatory tissue seen underlying. There is also some debris seen against the lateral femur which was also removed. A Z-lengthening was performed. Procedure Description: Jaron was greeted the preoperative holding area. His identity was confirmed the correct site was identified and marked. The consent was reviewed the patient and signed. Jaron was taken to the operating room and placed in the supine position on the operating room table. All bony prominences well-padded. The left leg was then prepped ChloraPrep and draped in standard fashion. A timeout was performed for safe surgery. Prophylactic antibiotics in the form of cefazolin were administered. A small triangle was placed underneath the knee to keep the knee in about 30 degrees of flexion. 30s tubercle, the fibular head, and the lateral femoral condyle were marked on the skin. An incision was made overlying the midportion of the IT band starting just proximal to the joint line extending approximately 6 cm proximally. This incision was taken down sharply through the skin. Electrocautery was used for any coagulation. A tenotomy scissor was used to incise the overlying fascia of the iliotibial band. Blunt dissection was carried to identify the posterior and anterior borders of the iliotibial band at the level around the femoral epicondyle and just proximal to it. I then dissected underneath the iliotibial band to fully expose its deep surface. A Z- lengthening was then performed with a longitudinal limb of about 4 cm. Once this was completed the iliotibial band was freed from surrounding adhesions and there was notable inflammatory changes underlying the iliotibial band. With a rongeur this was resected. The lateral collateral ligament was identified on palpation protected. There was some debris seen adjacent to the lateral epicondyle. This was removed with a rongeur. There is created a small rift in the capsule. Otherwise, there was no significant abnormality seen in this area. Once all this tissue was fully debrided I then irrigated the knee both intra- articularly and extra-articular with irrisept chlorhexidine solution. Using a 0 Vicryl I closed the small defect of the synovium. The iliotibial band assumed position about 17 mm proximal and these 2 abutting edges were then reapproximated with #2 FiberWire. The knee was taken through range of motion and noted to have no significant tension over the lateral condyle. Additionally, there is no significant stability to varus stress in extension or in flexion. The wound was once again irrigated. The deep tissues were injected with a mixture of 0.25% bupivacaine and Exparel. Deep tissues were closed with 0 Vicryl followed by 2-0 Vicryl. The skin was closed with a running 3-0 Monocryl in a subcuticular fashion. This was reinforced with skin glue and a Mepilex silver dressing was applied. In the end the case all counts were correct. He was transferred back to the PACU in a stable condition.
[2021-03-09] MEDS: HYDROcodone 5/Acetaminophen 325 TAB PO (13:27)
--- NOTE | 2021-03-09 14:09 | W.ANESPOSTOP ---
Postoperative Evaluation Date, Time and Location Date Performed: 03/09/21 Time Performed: 14:09 Patient Location: Day Surgery Unit Vital Signs Most Recent Imported Vital Signs: Most Recent Vital Signs Temp Pulse Resp BP Pulse Ox 36.1 C L 62 20 112/82 96 03/09/21 13:20 03/09/21 13:20 03/09/21 13:20 03/09/21 13:20 03/09/21 13:20 Pain Score Most Recent Pain Score: Most Recent Pain Score Pain Level 5 03/09/21 13:20 Assessment Mental Status: Awake (Alert & Oriented to Patient Baseline) Airway and Respiratory Function: Patent airway with normal (patient baseline) respiratory exam Cardiovascular Function: Hemodynamically Stable Hydration Status: Adequately Hydrated Nausea & Vomiting: No Nausea or Vomiting Pain: Pain is tolerable per patient Peripheral Nerve Block: Patient did not receive a nerve block
== END 2021-03-09 15:00 | disposition home or self-care (01) ==
PROVIDERS: PCP Nurse Practitioner Family; Visit Provider Student in an Organized Health Care Education/Training Program
PROC: (CPT 27305; principal; 2021-03-09 12:30)
DX: M76.32 Iliotibial band syndrome, left leg (principal); Z96.652 Presence of left artificial knee joint
CPT/HCPCS: 27305; J1100; J1885; J2250; J2405; J2704

== ENCOUNTER 2021-03-22 11:15 | Outpatient (CLI) | payer BC, SELFPAY ==
--- NOTE | 2021-03-22 10:30 | DI.RAD_ITS ---
Exam(s) XR KNEE LT 2V AP,LAT EXAM: XR KNEE LT 2V AP,LAT CLINICAL HISTORY: Hx L TKA. TECHNIQUE: 2D digital imaging was performed. COMPARISON: CR XR KNEE LT 3V AP,LAT,CRISTA from 08/31/2020 FINDINGS: There is continued stable position alignment of the components of the prosthesis. No fracture or loo sening evident. IMPRESSION: DATA REPOSITORY: RADIATION DOSE DELIVERED:
== END 2021-03-22 11:16 | disposition home or self-care (01) ==
LOC: DIORS 11:15
PROVIDERS: PCP Nurse Practitioner Family; Referring Provider Nurse Practitioner Family; Visit Provider Physician Assistant
DX: Z96.652 Presence of left artificial knee joint (principal)
CPT/HCPCS: 73560

== ENCOUNTER 2021-08-19 13:36 | Outpatient (CLI) | payer BC, SELFPAY ==
--- NOTE | 2021-08-19 13:00 | DI.RAD_ITS ---
Exam(s) XR PELVIS AP EXAM: XR PELVIS AP CLINICAL HISTORY: pre op bilat AVTAR TECHNIQUE: COMPARISON: CR XR HIP RT COMPLETE AP PELVIS from 12/27/2019 FINDINGS: Single view was obtained. A template ball is positioned inferior to the pelvis. There is severe los s of cartilaginous joint spaces of both hips. There is severe subchondral sclerosis and cyst formati on of the femoral heads and acetabula bilaterally. IMPRESSION: Severe DJD both hips. RADIATION DOSE DELIVERED: Total DLP
== END 2021-08-19 13:37 | disposition home or self-care (01) ==
LOC: DIORS 13:36
PROVIDERS: PCP Nurse Practitioner Family; Referring Provider Nurse Practitioner Family; Visit Provider Physician Assistant Surgical
DX: M16.0 Bilateral primary osteoarthritis of hip (principal)
CPT/HCPCS: 72170

== ENCOUNTER 2021-08-30 03:06 | Outpatient (CLI) | payer BC, SELFPAY ==
[2021-08-30 11:18] LABS: Source Nasal/Nares
[2021-08-30 19:41] LABS: COVID-19 PCR Negative (Negative)
== END 2021-08-30 03:07 | disposition home or self-care (01) ==
PROVIDERS: PCP Nurse Practitioner Family; Visit Provider Student in an Organized Health Care Education/Training Program
DX: Z20.822 Contact with and (suspected) exposure to COVID-19 (principal); Z01.818 Encounter for other preprocedural examination
CPT/HCPCS: 87635

== ENCOUNTER 2021-08-30 03:11 | Outpatient (CLI) | payer BC, SELFPAY ==
[2021-08-30 11:16] LABS: ESR 5 mm/hr (0-20); HCT 45.5 % (40.0-50.0); HGB 16.1 g/dL (13.5-17.5); MCH 30.7 pg (27.0-33.0); MCHC 35.4 % (32.0-36.0); MCV 87 fL (80-95); MPV 8.7 fL (8.0-11.0); Platelet Count 296 10^3/uL (130-400); RBC 5.24 10^6/uL (4.36-5.78); RDW 11.9 % (11.8-14.1); RDW-SD 38.1 fL; WBC 9.63 10^3/uL (4.4-10.8)
[2021-08-30 12:06] LABS: Anion Gap 10.2 mmol/L (3-11); BUN 16 mg/dL (7-18); C-Reactive Protein 0.28 mg/dL (0.0-0.3); CO2 27.8 mmol/L (21.0-32.0); CREATININE 1.1 mg/dL (0.70-1.30); Calcium 9.4 mg/dL (8.5-10.1); Chloride 101 mmol/L (98-107); Glucose 177 mg/dL (74-106); Potassium 3.6 mmol/L (3.5-5.1); Sodium 139 mmol/L (136-145)
== END 2021-08-30 03:12 | disposition home or self-care (01) ==
LOC: LBO 03:11
PROVIDERS: PCP Nurse Practitioner Family; Visit Provider Student in an Organized Health Care Education/Training Program
DX: M25.551 Pain in right hip (principal); M25.552 Pain in left hip; M16.0 Bilateral primary osteoarthritis of hip; T84.84XS Pain due to internal orthopedic prosthetic devices, implants and grafts, sequela; Z96.652 Presence of left artificial knee joint; Z01.818 Encounter for other preprocedural examination; Z01.812 Encounter for preprocedural laboratory examination
CPT/HCPCS: 36415; 80048; 85027; 85652; 86850; 86900; 86901; 86140

== ENCOUNTER 2021-09-01 06:10 | Day surgery (SDC) | payer BC, SELFPAY ==
[2021-09-01] VITALS (14 sets, daily range): BP systolic 53–152; BP diastolic 36–98; PULSE 55–82; RESP 11–20; TEMP 36–36.6; O2SAT 94–99; BMI 29.9
[2021-09-01] MEDS: Celecoxib 200 MG CAP 400 MG PO (06:44)
[2021-09-01] MEDS: Acetaminophen 500 MG TAB 1000 MG PO ×2 (06:44→14:55)
--- NOTE | 2021-09-01 06:44 | W.ANESPRE ---
General Info Date of Service Date Performed: 09/01/21 Height: 5 ft 7 in Weight: 86.8 kg Body Mass Index (BMI): 29.9 Surgical Procedure: Operation Date: 09/01/21 08:00 Proposed Procedure Side Surgeon p Hip Total Hip Anterior Bilateral Bilateral Miguel Angle Lisa MD Meds Allergies and Home Medications Allergies Allergy/AdvReac Type Severity Reaction Status Date / Time fluoxetine [From Prozac] Allergy sweating Unverified 09/01/21 06:20 Home Medication Medication Instructions Recorded losartan 50 mg tablet 50 mg PO DAILY 03/08/21 rosuvastatin 10 mg tablet 10 mg PO DAILY 03/08/21 acetaminophen 650 mg 650 mg PO Q12H 09/01/21 tablet,extended release Current Visit Medications: Current Medications Generic Name Dose Route Start Last Admin Trade Name Freq PRN Reason Stop Dose Admin Acetaminophen 1,000 mg 09/01/21 06:00 09/01/21 06:44 Acetaminophen 500 Mg Tab PO 09/01/21 16:00 1,000 mg PREOP TENNILLE Administration Celecoxib 400 mg 09/01/21 06:00 09/01/21 06:44 Celecoxib 200 Mg Cap PO 09/01/21 16:00 400 mg PREOP TENNILLE Administration Tranexamic Acid 1,000 mg/ 60 mls @ 360 mls/hr 09/01/21 06:00 Sodium Chloride IV 09/01/21 16:00 PREOP TENNILLE Tranexamic Acid 1,000 mg/ 60 mls @ 360 mls/hr 09/01/21 06:00 Sodium Chloride IV 09/01/21 16:00 DIRECTED TENNILLE Ringer's Solution 1,000 mls @ 80 mls/hr 09/01/21 06:00 IV 09/30/21 23:59 INFUSION TENNILLE Cefazolin Sodium/Dextrose 2 gm in 50 mls @ 100 mls/hr 09/01/21 06:00 Ancef Duplex IVPB 09/30/21 23:59 PREOP TENNIL[place] IV Miscellaneous Supplies 1 each 09/01/21 06:00 Iv Access IV 09/30/21 23:59 DIRECTED TENNILLE Sodium Chloride 0 ml 09/01/21 06:00 Normal Saline Flush 10 Ml Syr IV 09/30/21 23:59 PRN PRN Sodium Chloride 0 ml 09/01/21 06:00 Normal Saline 10 Ml Vial IJ 09/30/21 23:59 DIRECTED PRN Sterile Water 0 ml 09/01/21 06:00 Water,Injection,Sterile 10 Ml Vial IJ 09/30/21 23:59 DIRECTED PRN PFSH Active Problems Active Problems: Problem Status Onset Code 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.11 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 states he was taking a lot of ibuprofen r/t to the ITB and started to have some hematuria (3-4 weks ago 01/2021), so he stopped the IBU and the hematuria stopped. Pt. stated she informed the pt. PCP. HTN (hypertension) Left knee DJD s/p left TKA Surgical History Surgical History (Updated 09/01/21 @ 06:24 by Susan Quinn) History of left knee replacement History of surgery on lower extremity IT band Hx of colonoscopy Status post arthroscopy of right knee (05/2013) Dr. Reed Tobacco Smoking/Tobacco Use Status: Current every day Tobacco Type: smokeless tobacco Alcohol Alcohol Intake: current Alcohol intake frequency: a few times a week Alcohol type: beer and hard liquor Substance Use Substance use: Never Substance use type: does not use Details: alcohol: t-1, one glass Vital Signs and Lab Results Vital Signs Most Recent Vital Signs in EMR: Most Recent Vital Signs Temp Pulse Resp BP Pulse Ox 36.5 C 82 18 152/98 H 97 09/01/21 06:32 09/01/21 06:32 09/01/21 06:32 09/01/21 06:32 09/01/21 06:32 Lab Results Blood Type / Crossmatch: Patient ABO/Rh O Positive 08/30/21 Antibody Screen NEGATIVE 08/30/21 Complete Blood Count: White Blood Count 9.63 10^3/uL (4.4-10.8) 08/30/21 11:00 Red Blood Count 5.24 10^6/uL (4.36-5.78) 08/30/21 11:00 Hemoglobin 16.1 g/dL (13.5-17.5) 08/30/21 11:00 Hematocrit 45.5 % (40.0-50.0) 08/30/21 11:00 Platelet Count 296 10^3/uL (130-400) 08/30/21 11:00 Complete Metabolic Panel: Sodium Level 139 mmol/L (136-145) 08/30/21 11:00 Potassium Level 3.6 mmol/L (3.5-5.1) 08/30/21 11:00 Chloride Level 101 mmol/L (98-107) 08/30/21 11:00 Carbon Dioxide Level 27.8 mmol/L (21.0-32.0) 08/30/21 11:00 Blood Urea Nitrogen 16 mg/dL (7-18) 08/30/21 11:00 Creatinine 1.1 mg/dL (0.70-1.30) 08/30/21 11:00 Estimated GFR/1.73 m2 >= 60.00 (mL/min/1.73m2) 08/30/21 11:00 Calcium Level 9.4 mg/dL (8.5-10.1) 08/30/21 11:00 Glucose Level 177 mg/dL (74-106) H 08/30/21 11:00 C-Reactive Protein 0.28 mg/dL (0.0-0.3) 08/30/21 11:00 Liver Function Panel: No Data to Display Coagulation Panel: No Data to Display Cardiac Panel: No Data to Display Arterial Blood Gas: No Data to Display Venous Blood Gas: No Data to Display Pancreas Panel: No Data to Display Thyroid Panel: No Data to Display Infectious Disease: Coronavirus (COVID-19)(PCR) Negative (Negative) 08/30/21 11:11 Coronavirus 2019 Source Nasal/Nares 08/30/21 11:11 Blood Cultures: No Data to Display Toxicology Panel: No Data to Display Anesthesia Assessment and Plan Anesthesia History Personal History: No History of Anesthesia Complications and Unknown Anesthesia History Family History: No Family History of Anesthesia Complications Exercise Tolerance Exercise Tolerance: Metabolic Equivalents>4 Pertinent Negatives Pertinent Negatives: No Symptoms of GERD, No Major Cardiovascular Symptoms or Complaints, No Major Pulmonary Symptoms or Complaints and No History of CVA/TIA Cardiac & Pulmonary Exam Cardiac Exam: Normal S1/S2 Heart Sounds Pulmonary Exam: Clear Bilateral Breath Sounds Implantable Cardiac Device Does patient have a Pacemaker or an ICD?: No Airway Exam Known Difficult Airway: No Mallampati Class: 3 Mouth Opening: Normal (> 3cm) Thyromental Distance: Greater than 3 cm Neck Range of Motion: Full ROM Neck Circumference: Normal Teeth Condition: Normal Dentition ASA Classification ASA Score: ASA 2 Emergency Case?: No NPO Status NPO Status: NPO Clears >2 hours, Solids >8 hours Anesthesia Plan Resuscitation Status: Full Code Anesthesia Technique: Spinal Anesthesia Airway Planned: Natural Airway Monitors Used: Standard Monitors
[2021-09-01] MEDS: Lactated Ringers 1,000 ML 80 ML IV (06:55)
--- NOTE | 2021-09-01 07:15 | DI.RAD_ITS ---
Exam(s) XR HIP RT IN OR EXAM: XR HIP RT IN OR CLINICAL HISTORY: RIGHT HIP DJD TECHNIQUE: 2D and realtime digital imaging was performed. CONTRAST MATERIAL: Refer to procedure report. COMPARISON: No exams were available for comparison FINDINGS: Fluoroscopy was provided for Dr. Lisa during the performance of a right hip replacement. Please refer to the procedure report for complete details. Ka,r=3.5 mGy IMPRESSION: RADIATION DOSE DELIVERED:
--- NOTE | 2021-09-01 07:15 | DI.RAD_ITS ---
Exam(s) XR HIP LT IN OR EXAM: XR HIP LT IN OR CLINICAL HISTORY: LEFT HIP DJD TECHNIQUE: 2D and realtime digital imaging was performed. CONTRAST MATERIAL: Refer to procedure report. COMPARISON: No exams were available for comparison FINDINGS: Fluoroscopy was provided for Dr. Lisa during the performance of a left hip replacement. Please refer to the procedure report for complete details. Ka,r=5.1 mGy IMPRESSION: RADIATION DOSE DELIVERED:
--- NOTE | 2021-09-01 07:18 | W.PM.DS.N ---
Date of service: 09/01/21 Time of Service: 15:02 DS: Diagnosis Discharge Diagnosis (1) Degenerative joint disease of left hip: Status: Acute (2) Degenerative joint disease of right hip: Status: Acute Discharge Plan Disposition Patient Disposition: HOME Condition: Good Discharge Details Reason For Visit: Bilateral hip DJD Attending Provider: Miguel Angel Lisa Primary Care Provider: Elizabeth Lee Home Meds and New Rx's Prescriptions: New acetaminophen 500 mg tablet 500 mg PO Q6H PRN (Reason: pain) Qty: 60 2RF aspirin 81 mg tablet,delayed release (DR/EC) 81 mg PO BID 30 Days Qty: 60 0RF celecoxib [Celebrex] 200 mg capsule 200 mg PO BID Qty: 30 0RF pantoprazole 40 mg tablet,delayed release (DR/EC) 40 mg PO DAILY Qty: 14 0RF oxycodone 5 mg tablet 5 mg PO Q6H PRN (Reason: severe post-operative pain) Qty: 12 0RF Rx Instructions: Take one tablet up to every 6 hours as needed for severe pain docusate sodium [Colace] 100 mg capsule 100 mg PO BID Qty: 14 0RF Continued losartan 50 mg tablet 50 mg PO DAILY Label Comments: TAKE ONE TABLET BY MOUTH EVERY DAY rosuvastatin 10 mg tablet 10 mg PO DAILY Label Comments: TAKE 1 TABLET BY MOUTH DAILY Discontinued acetaminophen [Tylenol Arthritis] 650 mg Tablet Extended Release 650 mg PO Q12H Discharge Instructions Additional Instructions: Total Hip Discharge Instructions Activity: The most important activity is to walk. You should try to take short walks a few times a day. You have no restrictions on movement or positioning, but do not try to force what you do. You will find some stiffness and weakness with hip flexion (lifting your knee). Do not try to strengthen this too early, continue to practice walking and stairs and this will come. - Outpatient physical therapy can be helpful to help return you to a normal gait and improve your flexibility and strength. This can start around 2 weeks. For some patients, it?s not necessary. Usually this is determined at the time of discharge or at the first post-operative visit. - You should wear the JAD hose on both legs for 2 weeks. Dressing: Keep the surgical dressing in place for at least one week. After the first week it may be removed and replace with light gauze and tape or nothing. It may get wet after 3 days but avoid soaking the dressing. If it gets wet, just lightly pat dry. It is important to always keep some gauze between skin folds, especially when you are sitting. Spend some time with the wound exposed when you are lying flat as the incision does wrinkle onto itself. Medications: - You should take Tylenol and an anti-inflammatory Celebrex as your primary pain control medications. If the Celebrex is too expensive or not covered, please call the office for another alternative (Advil/Ibuprofen or Naproxen/Aleve). - You have been prescribed a stronger pain medication Oxycodone for breakthrough pain, take as needed as prescribed. - You have also been prescribed a stomach acid reduction agent Pantoprozole to help reduce stomach acid and reflux. - You will be taking Aspirin 81mg twice a day for DVT prevention unless instructed otherwise. - If you have constipation you should take Colace (which was prescribed) or Miralax (which you may purchase [id number]). It takes most people 3-4 days to have a bowel movement. Follow-up: 2 weeks If you have any acute concerns or questions, please do not hesitate to contact the office at [phone]. You may contact Dr. Lisa with any questions after hours through the hospital at [phone] or on his cell phone at [phone]. Stand Alone Forms: Anesthesia Discharge Inst., Marc Smith ([facility]) Referrals: Miguel Angel Lisa MD [ [facility] STAFF PHYSICIAN] - Equipment/Supplies: Walker Activity:: Elevate Remove Dressings/Wound Care:: Do Not Remove Shower/Bathe:: Cover Diet:: As Tolerated Discharge Orders Discharge Orders: Discharge Order (Routine); Ordered 09/01/21 Ordered By: Miguel Angel Lisa DS: Summary Time Spent with Patient providing and/or coordinating discharge services: Less than 30 minutes Status at Discharge Functional status at discharge: uses cane/walker Overall status at discharge: patient is back to baseline Mental Status: mental status grossly normal Speech and Movement: speech and movement normal Mood: congruent mood Affect: normal affect Exam Psych Mental Status: mental status grossly normal Speech and Movement: speech and movement normal Mood: congruent mood Affect: normal affect DS: Data Vitals/I&O Vitals and I&O: Vital Signs Temperature 97.7 F 09/01/21 06:32 Pulse 82 09/01/21 06:32 Pulse Rhythm Regular 09/01/21 06:32 Respiratory Rate 18 09/01/21 06:32 Respiratory Depth Normal 09/01/21 06:32 Blood Pressure 152/98 H 09/01/21 06:32 Pulse Oximetry 97 09/01/21 06:32 Oxygen Delivery Method Room Air 09/01/21 06:32 Oxygen Flow Rate 0 09/01/21 06:32 Pain Level 0 09/01/21 06:32 Intake & Output 08/31/21 08/31/21 09/01/21 11:59 23:59 11:59 Weight 191 lb 5.78 oz PFSH All Active Problems Degenerative joint disease of right knee (Acute) Degenerative joint disease of left hip (Acute) Degenerative joint disease of right hip (Acute) Status post total left knee replacement (Acute 03/17/20) Iliotibial band syndrome, left leg (Acute) Distal Depo-Medrol injection: 05/31/21; 01/01/21; 06/08/20 S/P Distal IT band lengthenin03/09/2021 Medical History Hematuria Pt. states he was taking a lot of ibuprofen r/t to the ITB and started to have some hematuria (3-4 weks ago 01/2021), so he stopped the IBU and the hematuria stopped. Pt. stated she informed the pt. PCP. HTN (hypertension) Left knee DJD s/p left TKA Surgical History History of left knee replacement History of surgery on lower extremity IT band Hx of colonoscopy Status post arthroscopy of right knee (05/2013) Dr. Reed Family History Maternal Uncle Family history of factor V Leiden mutation Social History Smoking/Tobacco Use Status: Current every day Tobacco Type: smokeless tobacco Smoking risk assessment performed?: Yes Alcohol Intake: current Alcohol Intake frequency: a few times a week Alcohol type: beer and hard liquor Drug use: Never Substance use type: does not use Details: alcohol: t-1, one glass Do you feel safe at home: Yes Do you feel safe in your relationship?: Yes Additional Social history: Unable to assess privatley
[2021-09-01] MEDS: ceFAZolin 2 GM/50 ML BAG IVPB (07:45)
--- NOTE | 2021-09-01 11:00 | DI.RAD_ITS ---
Exam(s) XR FEMUR LT EXAM: XR FEMUR LT CLINICAL HISTORY: QUESTION FOREIGN BODY. TECHNIQUE: 2D digital imaging was performed of the left femur. Four images were obtained. AP and lat eral views were obtained. COMPARISON: No exams were available for comparison FINDINGS: BONES: No acute fracture is present. No bony destructive lesion is seen. Visualized portion of knee a nd hip joints are unremarkable. The patient has a left total hip replacement and a left total knee re placement. SOFT TISSUE: No radiopaque foreign bodies are seen. Postsurgical changes are seen in the soft tissue s around the hip. IMPRESSION: No radiopaque foreign bodies are present. DATA REPOSITORY: RADIATION DOSE DELIVERED:
[2021-09-01] MEDS: ePHEDrine 25 MG/5 ML Syringe IVP (11:13)
--- NOTE | 2021-09-01 13:52 | W.PM.OP ---
Date of service: 09/01/21 Time of Service: 10:30 Operative Note Operative Note DATE OF PROCEDURE: 09/01/21 PRE-OP DIAGNOSIS: Bilateral Hip Osteoarthritis POST-OP DIAGNOSIS: same PROCEDURE: Bilateral Anterior Total Hip Arthroplasty with Intraoperative Navigation SURGEON: Miguel Angel Lisa ANESTHESIA TYPE: Spinal Refer to Anesthesia Record ESTIMATED BLOOD LOSS: 200 PATHOLOGY: none sent COMPLICATIONS: None (At the conclusion of the case there was noted to be a missing tip to the femoral component crate liner. X-ray showed that it was inside the recess of the top of the femoral component. Jaron and his were made aware.) Patient was transported to: PACU Patient's condition: stable Implants: RIGHT: 1. Depuy Horatio Acetabular Component, 52mm 2. Depuy Acetabular Liner, [id number] 3. Depuy Corail Standard 125 degree Collared Femoral Stem, Size 11 4. Depuy Altrx Ceramic Femoral Head, Size 36+5mm LEFT: 1. Depuy Horatio Acetabular Component, 52mm 2. Depuy Acetabular Liner, [id number] 3. Depuy Corail Coxa Vara Femoral Stem, Size 11 4. Depuy Altrx Ceramic Femoral Head, Size 36+1.5mm Indications: I have seen Jaron in clinic for symptoms of hip arthritis, confirmed with radiographic findings. He has exhausted nonoperative methods and was having significant limitations in daily function and desired better function and less pain. I discussed the technical details of a hip replacement. I explained the risks of the procedure to include, but not limited to, bleeding, infection, pain, stiffness, fracture, damage to nerves and vessels, damage to muscles and tendons, loosening, instability, leg length inequality, need for repeat procedure, blood clot and cardiopulmonary demise. Despite these risks, Jaron elected to proceed. Findings: There was significant signs of arthritis throughout both hips. Large osteophytes were present around the posterior and inferior acetabulum. 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 Procedure Description: Jaron was greeted in the preoperative holding area where the correct side was identified and marked. The consent was reviewed with the patient and signed. The history and physical was updated. All questions were answered. He was taken back to the operating room. A spinal anesthestic was then administered. The patient was placed into the supine position on the HANA table. Both feet were wrapped with [employer]br[employer] cotton wrap along with Coban. RIGHT Side The feet were placed in specialized boots for the HANA table, well seated within the boot and secured. SCDs were applied. The patient was then slid down onto a peroneal post. A preoperative AP hip was obtained to serve as a reference for determining leg lengths. Prophylactic antibiotics in the form of Cefazolin were administered. 1g of Tranxemic Acid was given intravenously within 30 minutes of incision. The right leg was then prepped with Chloraprep and draped in a standard fashion. A second prep with Chloraprep was performed prior to placement of a shower-curtain type drape with Iodine impregnated skin protection. A timeout to confirm correct identity, side and site, procedure, allergies, anesthesia, and medical concerns was performed. An obliquely oriented incision was made starting lateral to the ASIS and running distal over the Tensor Fascia Christina (TFL) muscle belly toward the fibular head, approximately 10cm. The skin and soft tissue was dissected sharply, through Donna?s fascia, and to the fascia of the TFL. With the fascia and superior border of the IT band identified, the fascia was incised with a new knife just above any perforators from the IT band. The TFL muscle belly was bluntly dissected away from the fascia and moved laterally. The fat between TFL and rectus was identified to ensure the dissection was not within the TFL. Blunt dissection created space between abductors and the capsule and retractor was placed over the lateral femoral neck. The fibers of the rectus femoris tendon were identified and these were freed from the anterior capsule. A second cobra retractor was placed around the medial femoral neck. The TFL was further retracted laterally to show the deep fascia. Careful dissection through this layer identified three main crossing vessels of the lateral femoral circumflex. These were cauterized in multiple locations and then cut without any noticeable bleeding. The TFL was further released bluntly from the deep fascia to expose anterior hip capsule and fat The Aleks orthopaedic retractor was then placed beneath the TFL and against sartorius and medial soft tissues to protect and retract the soft tissues. A T-capsulotomy was then performed starting at the superior lateral acetabulum and moving distally to the intertrochanteric ridge. These capsular flaps were tagged with a No. 1 Ethibond and elevated from within. The capsular flaps were released to the shoulder of the lateral neck and to the lesser trochanter to give excellent visualization of the proximal femur. A neck osteotomy was performed using an oscillating saw based on preoperative templates. This cut started in the shoulder and of the lateral neck and exited medially. The saw was at all times directed medially to avoid injury to the greater trochanter. Gentle traction was applied to the leg and the osteotomy opened. The femoral head was removed with a corkscrew, making sure to protect the TFL on its exit. This was measured on the back table to determing the starting reamer size. Portions of the rectus obscuring visualization were minimally elevated off the superior acetabulum. An anterior retractor was placed over the anterior wall between capsule and labrum and attached to the Gripper retraction system. A posterior retractor was placed similarly. This provided excellent visualization. The contents of the cotyloid fossa were removed with electrocautery and the labrum was removed with a knife. There was a notable floor osteophyte. There was significant chondromalacia of the superior acetabulum. Acetabular reaming began with a 48mm reamer. This first reaming was directed anterior to posterior and medial to get down to the true floor. This was inspected and reamed until the true floor was reached. The anterior retractor was then released and entry and exit was provided by traction on the capsular flaps. I then reamed sequentially up to a 52mm reamer where good fit was obtained. The larger reamers were oriented based on anatomical reference of the anterior and lateral denny to ensure proper abduction and anteversion. Positioning and size was confirmed with the fluoroscopy. A 52mm Depuy Horatio acetabular component was selected. The acetabulum was reamed around the periphery with the selected acetabular size to prevent a rim fit. The deep tissues were irrigated. The acetabular component was then impacted in a position of about 40-45 degrees of abduction and 15-20 degrees of anteversion, using the patient?s anatomy as the ultimate landmark. Fluoroscopy was used to confirm this. There was excellent heavy equipment operator apprentice of the acetabular component and the inserting handle was removed. The acetabular liner, Depuy [id number] polyethylene liner, was inserted and lined up with the tines of the acetabular component. There was no soft tissue interposition. The liner was then impacted into position and confirmed to be well-seated. A portion of the bipin-articular cocktail was then injected around the acetabulum into the capsule and periosteum. This cocktail consisted of 50cc of 0.25% Bupivicaine and 20cc of Exparel, expanded to a total of 120cc. Traction was released from the femur. The leg was rotated to 120 degrees. Any remaining medial capsule was released until the lesser trochanter was easily palpable. A Joshua retractor was placed medially. The lateral capsule was further released into the shoulder to allow access to the greater trochanter. A Joshua retractor was placed over the greater trochanter which allowed the trochanter to flip in front of the capsule for excellent exposure. The leg was brought down into maximal extension and 20 degrees of adduction while ensuring there was no impingement on the acetabulum. Any remnant capsule within the trochanter was released. Piriformis and obturator externis were identified and protected. There was excellent access to the proximal femur. The lateral neck remnant was removed with a rongeur. A blunt canal probe was used to identify the canal and trajectory for later broaching. A box osteotome initiated the broach course. A small curved rasp and a curved curette were used to work laterally. Broaching then began with a size 8 Corail broach. This was inserted manually around the trochanter and into the canal before mallet blows. The broach was seated to a few millimeters below the cut level based on the neck cut and the preoperative template. Sequential broaching was continued with the [employer] pneumatic broaching device until a tight fit was obtained with good rotational control of the femur. A trial Coxa Vara neck was inserted along with a +1.5 trial head. The leg was brought out of extension and adduction and then reduced with traction and internal rotation. The leg was stable anteriorly in a position of 30 degrees of extension and 90 degrees of external rotation. Fluoroscopy was used to ensure there was no fracture and the stem was seated well. Leg lengths were checked with an AP pelvis and pelvic reference points. [employer] navigation system was used to confirm appropriate positioning and leg length and offset. This showed a slight over-correction of the offset so I went with a 125 standard +5. Once content with the desired offset and leg lengths, the leg was brought back into extension, external rotation and adduction. The periosteum and surrounding tissue was injected with remaining portion of the bipin-articular cocktail. The proximal femur was irrigated as well as the deep tissues. The Depuy Corail standard 125 deg collared stem, size 11, was then manually inserted into the proximal femur making sure to control rotation. It was then malleted into position with light blows, giving breaks to allow bone expansion and decrease risk of fracture. The selected Depuy Altrx Ceramic Head, size 36+5mm, was then placed onto the clean and dry trunnion and secured with impaction onto the tapered fit. The leg was brought back out of extension and adduction and reduced with traction and internal rotation. Stability was confirmed with no shuck at 90 degrees of external rotation and 30 degrees of extension. No impingement through range of motion arc. Final x-ray images were obtained with fluoroscopy to confirm adequate positioning and no intraoperative fracture. The deep tissues were thoroughly irrigated with Surgiphor Betadine solution, allowed to sit for 3 minutes, and then irrigated with saline. The second dose of TXA 1g was administered intravenously.The capsule was then reapproximated with the previously placed Ethibond sutures. The TFL fascia was finally closed with a No. 2 Stratafix, barbed suture. Deep tissues were then reapproximated with 0 Vicryl and a running 2-0 Vicryl. The skin was closed with a running 4-0 Monocryl in a subcuticular fashion. This was reinforced with skin glue. A Mepilex silver dressing was applied. LEFT Side Keeping the back table sterile, the drapes were removed, light handles changed, and fluoroscopy switched rooms sides. Once again, a AP hip was obtained to serve as a reference for determining leg lengths. The left leg was then prepped with Chloraprep and draped in a standard fashion. A second prep with Chloraprep was performed prior to placement of a shower-curtain type drape with Iodine impregnated skin protection. A timeout was once again performed to ensure that there were no issues to proceed. An obliquely oriented incision was made starting lateral to the ASIS and running distal over the Tensor Fascia Christina (TFL) muscle belly toward the fibular head, approximately 10cm. The skin and soft tissue was dissected sharply, through Donna?s fascia, and to the fascia of the TFL. With the fascia and superior border of the IT band identified, the fascia was incised with a new knife just above any perforators from the IT band. The TFL muscle belly was bluntly dissected away from the fascia and moved laterally. The fat between TFL and rectus was identified to ensure the dissection was not within the TFL. Blunt dissection created space between abductors and the capsule and retractor was placed over the lateral femoral neck. The fibers of the rectus femoris tendon were identified and these were freed from the anterior capsule. A second cobra retractor was placed around the medial femoral neck. The TFL was further retracted laterally to show the deep fascia. Careful dissection through this layer identified three main crossing vessels of the lateral femoral circumflex. These were cauterized in multiple locations and then cut without any noticeable bleeding. The TFL was further released bluntly from the deep fascia to expose anterior hip capsule and fat The Aleks orthopaedic retractor was then placed beneath the TFL and against sartorius and medial soft tissues to protect and retract the soft tissues. A T-capsulotomy was then performed starting at the superior lateral acetabulum and moving distally to the intertrochanteric ridge. These capsular flaps were tagged with a No. 1 Ethibond and elevated from within. The capsular flaps were released to the shoulder of the lateral neck and to the lesser trochanter to give excellent visualization of the proximal femur. A neck osteotomy was performed using an oscillating saw based on preoperative templates. This cut started in the shoulder and of the lateral neck and exited medially. The saw was at all times directed medially to avoid injury to the greater trochanter. Gentle traction was applied to the leg and the osteotomy opened. The femoral head was removed with a corkscrew, making sure to protect the TFL on its exit. This was measured on the back table to determing the starting reamer size. Portions of the rectus obscuring visualization were minimally elevated off the superior acetabulum. An anterior retractor was placed over the anterior wall between capsule and labrum and attached to the Gripper retraction system. A posterior retractor was placed similarly. This provided excellent visualization. The contents of the cotyloid fossa were removed with electrocautery and the labrum was removed with a knife. There was a notable floor osteophyte. There was significant chondromalacia of the superior acetabulum. Acetabular reaming began with a 48mm reamer. This first reaming was directed anterior to posterior and medial to get down to the true floor. This was inspected and reamed until the true floor was reached. The anterior retractor was then released and entry and exit was provided by traction on the capsular flaps. I then reamed sequentially up to a 52mm reamer where good fit was obtained. The larger reamers were oriented based on anatomical reference of the anterior and lateral denny to ensure proper abduction and anteversion. Positioning and size was confirmed with the fluoroscopy. A 52mm Depuy Horatio acetabular component was selected. The acetabulum was reamed around the periphery with the selected acetabular size to prevent a rim fit. The deep tissues were irrigated. The acetabular component was then impacted in a position of about 40-45 degrees of abduction and 15-20 degrees of anteversion, using the patient?s anatomy as the ultimate landmark. Fluoroscopy was used to confirm this. There was excellent heavy equipment operator apprentice of the acetabular component and the inserting handle was removed. The acetabular liner, Depuy [id number] polyethylene liner, was inserted and lined up with the tines of the acetabular component. There was no soft tissue interposition. The liner was then impacted into position and confirmed to be well-seated. A portion of the bipin-articular cocktail was then injected around the acetabulum into the capsule and periosteum. This cocktail consisted of 50cc of 0.25% Bupivicaine and 20cc of Exparel, expanded to a total of 120cc. Traction was released from the femur. The leg was rotated to 120 degrees. Any remaining medial capsule was released until the lesser trochanter was easily palpable. A Joshua retractor was placed medially. The lateral capsule was further released into the shoulder to allow access to the greater trochanter. A Joshua retractor was placed over the greater trochanter which allowed the trochanter to flip in front of the capsule for excellent exposure. The leg was brought down into maximal extension and 20 degrees of adduction while ensuring there was no impingement on the acetabulum. Any remnant capsule within the trochanter was released. Piriformis and obturator externis were identified and protected. There was excellent access to the proximal femur. The lateral neck remnant was removed with a rongeur. A blunt canal probe was used to identify the canal and trajectory for later broaching. A box osteotome initiated the broach course. A small curved rasp and a curved curette were used to work laterally. Broaching then began with a size 8 Corail broach. This was inserted manually around the trochanter and into the canal before mallet blows. The broach was seated to a few millimeters below the cut level based on the neck cut and the preoperative template. Sequential broaching was continued with the [employer] pneumatic broaching device until a tight fit was obtained with good rotational control of the femur. A trial standard 125 deg neck was inserted along with a +5 trial head. The leg was brought out of extension and adduction and then reduced with traction and internal rotation. The leg was stable anteriorly in a position of 30 degrees of extension and 90 degrees of external rotation. Fluoroscopy was used to ensure there was no fracture and the stem was seated well. Leg lengths were checked with an AP pelvis and pelvic reference points. [employer] navigation system was used to confirm appropriate positioning and leg length and offset. This did not seem to add enough offset but there was too much leg length. Therefore I planned to use a coxa vara neck with a +1.5 head and advance the broach about 6-7mm. Once content with the desired offset and leg lengths, the leg was brought back into extension, external rotation and adduction. The periosteum and surrounding tissue was injected with remaining portion of the bipin-articular cocktail. The proximal femur was irrigated as well as the deep tissues. The Depuy Corail Coxa Vara stem, size 11, was then manually inserted into the proximal femur making sure to control rotation. It was then malleted into position with light blows, giving breaks to allow bone expansion and decrease risk of fracture. The selected Depuy Altrx Ceramic Head, size 36+1.5mm, was then placed onto the clean and dry trunnion and secured with impaction onto the tapered fit. The leg was brought back out of extension and adduction and reduced with traction and internal rotation. Stability was confirmed with no shuck at 90 degrees of external rotation and 30 degrees of extension. No impingement through range of motion arc. Final x-ray images were obtained with fluoroscopy to confirm adequate positioning and no intraoperative fracture. The deep tissues were thoroughly irrigated with Surgiphor Betadine solution, allowed to sit for 3 minutes, and then irrigated with saline. The capsule was then reapproximated with the previously placed Ethibond sutures. The TFL fascia was finally closed with a No. 2 Stratafix, barbed suture. Deep tissues were then reapproximated with 0 Vicryl and a running 2-0 Vicryl. The skin was closed with a running 4-0 Monocryl in a subcuticular fashion. This was reinforced with skin glue. A Mepilex silver dressing was applied. At the end of the case, all counts were correct. Jaron was transferred to the hospital bed without difficulty and suffering no apparent complication. Jaron has a good prognosis. Physical therapy will start today and without restrictions, weight-bearing as tolerated. Aspirin 81mg BID will be used for DVT prophylaxis.
[2021-09-01] MEDS: oxyCODONE 5 MG TAB PO (15:00)
[2021-09-01] MEDS: Normal Saline Flush 10 ML SYR IV (15:40)
[2021-09-01] MEDS: ceFAZolin 1 GM/50 ML BAG IVPB (15:41)
--- NOTE | 2021-09-01 16:22 | PT.INIE ---
Date of service: 09/01/21 Time of Service: 16:22 PT Notes Visit Reasons: Bilateral hip DJD Physical Therapy Inpatient Initial Evaluation Date: Referring Doctor: SUZANNA Linda PT Orders: PT CONSULT: Status post Ortho surgery Precautions: Fall. Standard.? WBAT on B LE with AD. Patient Profile/Admitting Diagnosis: Jaron is a 60-year-old male with degenerative joint disease of both hips and is status post bilateral total anterior hip arthroplasties on postoperative day 0. PMHX: Medical History?(Rev Hematuria Pt. states he was taking a lot of ibuprofen r/t to the ITB and started to have some hematuria (3-4 weks ago 01/2021), so he stopped the IBU and the hematuria stopped. Pt. stated she informed the pt. PCP. HTN (hypertension) Left knee DJD S/p left TKA Surgical History? Status post arthroscopy of right knee (05/2013) Dr. Reed Social History/Home Situation: Lives with in a private home with 4 steps to enter with bilateral rails. Independent with all aspects of ADLs prior to surgery.? Equipment Owned/DME: Front-wheeled walker Subjective: Agreeable to PT consult. Amazed at how painless both his hips are with movement and weight bearing. Objective: General Observation: Mepilex Ag over surgical incision. TEDS on B legs. Mental Status: Alert and oriented x 4 Pain: 0/10 in B hips ROM: Right Lower Extremity: Hip flexion WFL. Hip abduction WFL. Knee flexion WFL. Ankle dorsiflexion WFL. Ankle plantarflexion WFL. Left Lower Extremity: Hip flexion WFL. Hip abduction WFL. Knee flexion WFL. Ankle dorsiflexion WFL. Ankle plantarflexion WFL. Strength: Right Lower Extremity: Hip flexors 4/5. Hip abductors 4/5. Knee flexors 4/5. Knee extensors 4/5. Ankle dorsiflexors 4/5. Ankle plantarflexors 5/5. Left Lower Extremity:Hip flexors 4/5. Hip abductors 4/5. Knee flexors 4/5. Knee extensors 4/5. Ankle dorsiflexors 4/5. Ankle plantarflexors 5/5. Sensation: Intact as to pain and pressure on bilateral lower extremities. Still reports some tingling feeling in B feet. Bed Mobility/Transfers: Supine to sit supervision Sit to supine supervision Sit to stand supervision Stand to sit supervision Bed to chair supervision Chair to bed supervision Gait: Guided patient through navigating level surface of about 150 feet using the FWW with SBA. Step through gait pattern. happy with how weight bearing does not hurt. Denies headache, chest pain, and lightheadedness throughout activity. THERA EX: Trained with seated level balance exercises consisting of LAQs, x 10 and seated hip flexion x 10, ankle Df/PF x 10, gluteal sets x 10, quadriceps sets x 10. Stairs: Up and down 6 x 4 inch steps and 4 x 6 inch steps of holding onto bilateral rails with step to gait pattern wearing only supervision. Balance: Static Sitting: Normal Dynamic Sitting: Normal Static Standing: Fair Dynamic Standing: Fair Special Tests: Mobilit nights Limitations Standardized Measure [facility] 6 clicks Basic Mobility Inpatient Short Form: Raw Score: 24? CMS Score: 0% deficit? ? ? Informed Consent/Education: Patient instructed in purpose of PT consult and plan of care. Assessment: Jaron demonstrates functional mobility decline, impaired balance, difficulty with walking and increased risk for falls due to requiring the use of front-wheeled walker to maximize independence and reduce fall risk. Patient presents with clinical signs and symptoms consistent with current/admitting diagnoses that have resulted to mobility limitations, gait instability, generalized weakness, and impairment of motor control as demonstrated by the following impairment level findings: 1.? Decreased strength to the hip major muscle groups 2.? Impaired standing balance 3.? Impaired activity tolerance Impairments are contributing to the following functional limitations: 1.? Inability to safely ambulate without assistive device 2.? Increase completion time for mobility ADL performance Patient is assessed as a 59173 moderate complexity based on the following: History: 59-year-old male with impairment level findings, functional limitations, and past medical history as indicated above Examination: Demonstrable impairment in strength, balance, and mobility level with underlying impairments and functional limitations as documented above Presentation:Evolving Decision Makin moderate? complexity Goals: N/A. PT eval and 1 treatment session only for functional mobility training using a front wheeled walker? as well as for HEP education. Plan of Care/Treatment Plan: N/A. PT eval and 1 treatment session only for functional mobility training using a front wheeled walker? as well as for HEP education. DISCHARGE RECOMMENDATIONS: Home when medically cleared by orthopedic surgeon. OP PT services to facilitate return to premorbid independent level. TREATMENT CODE/TIME: 52841 x 20 minutes, 21510 x 12 minutes beginning at 16:22 PM. Thank you for the opportunity to participate in the care of this patient. Candace Valdivia PT, DPT, CLT [facility] [place], [place]
--- NOTE | 2021-09-01 16:28 | W.ANESPOSTOP ---
Postoperative Evaluation Date, Time and Location Date Performed: 09/01/21 Time Performed: 16:28 Patient Location: Day Surgery Unit Vital Signs Most Recent Imported Vital Signs: Most Recent Vital Signs Temp Pulse Resp BP Pulse Ox 36.4 C L 70 18 105/68 98 09/01/21 15:12 09/01/21 15:12 09/01/21 15:12 09/01/21 15:12 09/01/21 15:12 Pain Score Most Recent Pain Score: Most Recent Pain Score Pain Level 5 09/01/21 15:12 Assessment Mental Status: Awake (Alert & Oriented to Patient Baseline) Airway and Respiratory Function: Patent airway with normal (patient baseline) respiratory exam Cardiovascular Function: Hemodynamically Stable Hydration Status: Adequately Hydrated Nausea & Vomiting: No Nausea or Vomiting Pain: Pain is tolerable per patient Peripheral Nerve Block: Patient did not receive a nerve block Postoperative Comments:: Patient's pain score is currently 1 and is working with Physical therapy. Spinal almost completeley resolved. Has not voided. Recent bladder scan shows 268 ml. Patient appropriate for discharge. Educated that if he does not void to go to the emergency department.
== END 2021-09-01 17:13 | disposition home or self-care (01) ==
PROVIDERS: PCP Nurse Practitioner Family; Visit Provider Student in an Organized Health Care Education/Training Program
PROC: 0SR90JZ Replacement of Right Hip Joint with Synthetic Substitute, Open Approach (ICD-10-PCS; CPT 27130; principal; 2021-09-01 07:30)
DX: M16.0 Bilateral primary osteoarthritis of hip (principal); I10 Essential (primary) hypertension; Z96.652 Presence of left artificial knee joint
CPT/HCPCS: 27130; 20985 ×2; 73552; 97162; 97530; 73501; J0690; J2250; J2370; J2405

== ENCOUNTER 2021-09-16 11:15 | Outpatient (CLI) | payer BC, SELFPAY ==
--- NOTE | 2021-09-16 10:45 | DI.RAD_ITS ---
Exam(s) XR HIP PELVIS ADULT BL EXAM: XR HIP PELVIS ADULT BL CLINICAL HISTORY: f/u bilateral AVTAR. TECHNIQUE: 2D digital imaging was performed. COMPARISON: CR XR PELVIS AP from 08/19/2021 FINDINGS: 3 views Is satisfactory position alignment of the components of the bilateral hip prostheses. No fractures o r loosening. There is no radiographic evidence of osteomyelitis on either side. IMPRESSION: Satisfactory appearance of recently placed bilateral hip prostheses DATA REPOSITORY: RADIATION DOSE DELIVERED:
== END 2021-09-16 11:16 | disposition home or self-care (01) ==
LOC: DIORS 11:15
PROVIDERS: PCP Nurse Practitioner Family; Visit Provider Student in an Organized Health Care Education/Training Program
DX: Z96.643 Presence of artificial hip joint, bilateral (principal)
CPT/HCPCS: 73521

== ENCOUNTER 2022-01-04 13:28 | Outpatient (REF) | payer BC, SELFPAY ==
[2022-01-04 16:54] LABS: Hemoglobin A1C 6.7 % (<5.7)
[2022-01-04 17:00] LABS: Calculated LDL 135 mg/dL (<100); Cholesterol 214 mg/dL (<200); HDL Cholesterol 33 mg/dL (40-60); Triglyceride 232 mg/dL (<150)
[2022-01-06 05:37] LABS: Vitamin D 25 Total 18.1 ng/mL (30-100)
== END 2022-01-04 13:29 | disposition home or self-care (01) ==
LOC: NCHCN 13:28
PROVIDERS: PCP Nurse Practitioner Family; Visit Provider Nurse Practitioner Family
DX: E78.5 Hyperlipidemia, unspecified (principal); R73.9 Hyperglycemia, unspecified; E55.9 Vitamin D deficiency, unspecified
CPT/HCPCS: 80061; 82306; 83036

== ENCOUNTER 2022-04-07 06:09 | Day surgery (SDC) | payer BC, SELFPAY ==
--- NOTE | 2022-04-06 17:40 | W.ANESPRE ---
General Info Date of Service Date Performed: 04/07/22 Height: 5 ft 7 in Weight: 84 kg Body Mass Index (BMI): 29.0 Surgical Procedure: Operation Date: 04/07/22 07:35 Proposed Procedure Side Surgeon elizabeth Hannah MD Meds Allergies and Home Medications Allergies Allergy/AdvReac Type Severity Reaction Status Date / Time fluoxetine [From Prozac] AdvReac Mild sweating Verified 04/07/22 06:23 Home Medication Medication Instructions Recorded rosuvastatin 10 mg tablet 20 mg PO DAILY 03/08/21 chlorthalidone 25 mg tablet 25 mg PO DAILY 09/16/21 cholecalciferol (vitamin D3) 1,250 1,250 mcg PO QWEEK 02/07/22 mcg (50,000 unit) capsule fluticasone propionate 50 1 spray intranasal DAILY 02/07/22 mcg/actuation nasal spray,suspension acetaminophen 500 mg tablet 500 mg PO Q6H PRN 03/23/22 (Tylenol Extra Strength) Current Visit Medications: Current Medications Generic Name Dose Route Start Last Admin Trade Name Kalpesh PRN Reason Stop Dose Admin Ringer's Solution 1,000 mls @ 80 mls/hr 04/07/22 06:00 IV 05/06/22 23:59 INFUSION TENNILLE IV Miscellaneous Supplies 1 each 04/07/22 06:00 Iv Access IV 05/06/22 23:59 DIRECTED [place]ENNILLE Sodium Chloride 0 ml 04/07/22 06:00 Normal Saline Flush 10 Ml Syr IV 05/06/22 23:59 PRN PRN Sodium Chloride 0 ml 04/07/22 06:00 Normal Saline 10 Ml Vial IJ 05/06/22 23:59 DIRECTED PRN Sterile Water 0 ml 04/07/22 06:00 Water,Injection,Sterile 10 Ml Vial IJ 05/06/22 23:59 DIRECTED PRN PFSH Active Problems Active Problems: Problem Status Onset Code Blood glucose elevated R73.9 Elevated hemoglobin A1c R73.09 Positive fecal occult blood test R19.5 Skin lesions L98.9 Iliotibial band syndrome, right leg M76.31 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.11 Painful total knee replacement, left T84.84XA, Z96.652 Medical History Medical History Anisocoria Depression Diverticulosis Hematuria Pt. states he was taking a lot of ibuprofen r/t to the ITB and started to have some hematuria (3-4 weks ago 01/2021), so he stopped the IBU and the hematuria stopped. Pt. stated she informed the pt. PCP. HTN (hypertension) Hyperlipidemia Left knee DJD s/p left TKA Vitamin D deficiency Surgical History Surgical History History of left knee replacement History of surgery on lower extremity IT band Hx of colonoscopy Iliotibial band syndrome, left leg Distal Depo-Medrol injection: 01/20/22; 05/31/21; 01/01/21; 06/08/20 S/P Distal IT band lengthenin03/09/2021 Status post arthroscopy of right knee (05/2013) Dr. Reed Status post bilateral total hip replacement (09/01/21) Status post total left knee replacement (03/17/20) Status post vasectomy Tobacco Smoking/Tobacco Use Status: Current every day Tobacco Type: smokeless tobacco Alcohol Alcohol Intake: current Alcohol intake frequency: a few times a week Alcohol type: beer and hard liquor Substance Use Substance use: Never Substance use type: does not use Details: alcohol: t-1, one glass Vital Signs and Lab Results Vital Signs Most Recent Vital Signs in EMR: Temp Pulse Resp BP Pulse Ox 36.5 C 70 18 120/80 97 04/07/22 06:15 04/07/22 06:15 04/07/22 06:15 04/07/22 06:15 04/07/22 06:15 Lab Results Blood Type / Crossmatch: No Data to Display Complete Blood Count: No Data to Display Complete Metabolic Panel: No Data to Display Liver Function Panel: No Data to Display Coagulation Panel: No Data to Display Cardiac Panel: No Data to Display Arterial Blood Gas: No Data to Display Venous Blood Gas: No Data to Display Pancreas Panel: No Data to Display Thyroid Panel: No Data to Display Infectious Disease: No Data to Display Blood Cultures: No Data to Display Toxicology Panel: No Data to Display Anesthesia Assessment and Plan Anesthesia History Personal History: No History of Anesthesia Complications and Unknown Anesthesia History Family History: No Family History of Anesthesia Complications Exercise Tolerance Exercise Tolerance: Metabolic Equivalents>4 Cardiac & Pulmonary Exam Cardiac Exam: Normal S1/S2 Heart Sounds Pulmonary Exam: Clear Bilateral Breath Sounds Implantable Cardiac Device Does patient have a Pacemaker or an ICD?: No Airway Exam Known Difficult Airway: No Mallampati Class: 3 Mouth Opening: Normal (> 3cm) Thyromental Distance: Greater than 3 cm Neck Range of Motion: Full ROM Neck Circumference: Thick Teeth Condition: Normal Dentition ASA Classification ASA Score: ASA 2 Emergency Case?: No NPO Status NPO Status: NPO Clears >2 hours, Solids >8 hours Anesthesia Plan Resuscitation Status: Full Code Anesthesia Technique: General Anesthesia Airway Planned: Natural Airway Monitors Used: Standard Monitors Preoperative Comments:: 61 yo male with positive fecal occult blood for colonoscopy. Sig PMHx: depression, HTN (chlorthalidone), daily tobacco (chewing), A1c 6.7, occ EtOH. Previous Anes: - TKA, knee scope, and AVTAR with spinal, prop, no issues.
--- NOTE | 2022-04-06 19:16 | W.PM.DSUDISC ---
Date of service: 04/07/22 Time of Service: 07:51 Discharge Plan Disposition Patient Disposition: Home Condition: Good Discharge Details Reason For Visit: Colonoscopy Attending Provider: Danilo Hannah Primary Care Provider: Elizabeth Lee Home Meds and New Rx's Prescriptions: Continued chlorthalidone 25 mg tablet 25 mg PO DAILY acetaminophen [Tylenol Extra Strength] 500 mg tablet 500 mg PO Q6H PRN fluticasone propionate 50 mcg/actuation spray,suspension 1 spray intranasal DAILY Rx Instructions: administer into each nostril cholecalciferol (vitamin D3) 1,250 mcg (50,000 unit) capsule 1,250 mcg PO QWEEK rosuvastatin 10 mg tablet 20 mg PO DAILY Label Comments: TAKE 1 TABLET BY MOUTH DAILY Discontinued polyethylene glycol 3350 17 gram/dose powder 238 g PO ONCE Qty: 238 0RF Rx Instructions: take per colonoscopy instructions bisacodyl [Dulcolax (bisacodyl)] 5 mg tablet,delayed release (DR/EC) 5 mg PO ONCE Qty: 4 0RF Rx Instructions: take per colonoscopy instructions Discharge Instructions Instructions: Diverticulosis (DC), Diverticulosis Diet (GEN), Hemorrhoids (GEN) Additional Instructions: 1. If tolerated, consume a soft, low fiber diet for 1-2 days. [address] Do not drive, drink alcohol, operate machinery, make critical decisions, or do activities that require coordination or balance for 24 hours. 3. Because air was put into your colon during the procedure, expelling air from your rectum (passing gas or farting) is normal. 4. You may not have a bowel movement for 1-3 days because of the colonoscopy prep. This is normal. 5. Go directly to the emergency room if you notice any of the following: Develop chills (warm to touch), or if you have a thermometer and your temperature is above 101 Difficulty breathing or difficultly swallowing Persistent vomiting Severe abdominal pain, other than gas cramps Severe chest pain Black, tarry stools Any bleeding ? exceeding one tablespoon 6. Call your physician if the site where your intravenous was started becomes red, swollen, painful, and warm to touch. 7. Your physician has reviewed your pre-procedure medications. Please continue to take those medications as previously ordered. You will be given specific information/education regarding any changes to your medications before leaving. Activity:: Activity as Tolerated Diet:: As Tolerated Discharge Orders Discharge Orders: Discharge Order (Routine); Ordered 04/06/22 Ordered By: Danilo Hannah DS: Diagnosis Discharge Diagnosis (1) Positive fecal occult blood test: Status: Acute Asessment and Plan: You have moderate diverticulosis involving the a sending and sigmoid colon. This is likely the source of your positive fecal blood test. Of the attached instructions regarding diverticular diet and lifestyle modifications You should have another colonoscopy in 10 years to assess for colon polyps or cancers
--- NOTE | 2022-04-06 19:18 | W.COLOREPORT ---
Date of service: 04/07/22 Time of Service: 07:53 Colonoscopy Report Date of procedure: 04/07/22 Pre-op diagnosis general: Positive fecal blood test Post-op diagnosis procedure note: other (Internal hemorrhoids, diverticulosis) Procedure: Colonoscopy Surgeon: Danilo Hannah Anesthesia Type: General:No Airway Estimated blood loss (mL): 0 Pathology: none sent Complications: None Disposition: same day Indications: Jaron is a 61-year-old male with an occult positive fecal blood test Prep: Miralax/Dulcolax Procedure Start Time: 07:26 Procedure End Time: 07:42 Retraction Time: 12 Findings: A sending diverticulosis, sigmoid diverticulosis, internal hemorrhoids Procedure Description: After the induction of monitored anesthetic care, and with the patient in left lateral decubitus position, I began by performing an external anorectal exam.? Perineum and skin were normal, as was the anal verge.? There was no evidence of external hemorrhoids.? Next, I performed a digital rectal exam.? I did not appreciate any abnormal findings.? Next, I advanced a colonoscope into the rectal vault.? I performed retroflexion.? There were mild internal hemorrhoids.? Using insufflation, I then advanced the colonoscope beyond the rectal folds and into the sigmoid colon before advancing towards the cecum.? There was moderate sigmoid diverticulosis. the quality of the prep was adequate.? The scope was noted to be in the cecum by identification of the ileocecal valve and appendiceal orifice.? I then began withdrawing the colonoscope using repeated irrigation as necessary for full evaluation of the colonic mucosa. There was diverticulosis involving the ascending colon as well. Once the scope was withdrawn to the level of the rectum, great care was taken to examine portions of the rectal folds.? Finally, the scope was withdrawn and the patient was brought to the same-day surgery recovery unit as the anesthetic wore off. ?I did not see any evidence of polyps. the findings and instructions were shared with the patient prior to discharge.
[2022-04-07 06:15] VITALS: BP 120/80; PULSE 70; RESP 18; TEMP 36.5; O2SAT 97
[2022-04-07] MEDS: Lactated Ringers 1,000 ML 80 ML IV (06:39)
[2022-04-07 07:09] VITALS: BMI 29.0
[2022-04-07 07:50] VITALS: BP 121/82; PULSE 65; RESP 23; TEMP 36.4; O2SAT 94
--- NOTE | 2022-04-07 08:09 | W.ANESPOSTOP ---
Postoperative Evaluation Date, Time and Location Date Performed: 04/07/22 Time Performed: 08:09 Patient Location: Day Surgery Unit Vital Signs Most Recent Imported Vital Signs: Most Recent Vital Signs Temp Pulse Resp BP Pulse Ox 36.4 C L 65 23 121/82 94 04/07/22 07:50 04/07/22 07:50 04/07/22 07:50 04/07/22 07:50 04/07/22 07:50 Pain Score Most Recent Pain Score: Most Recent Pain Score Pain Level 0 04/07/22 07:50 Assessment Mental Status: Awake (Alert & Oriented to Patient Baseline) Airway and Respiratory Function: Patent airway with normal (patient baseline) respiratory exam Cardiovascular Function: Hemodynamically Stable Hydration Status: Adequately Hydrated Nausea & Vomiting: No Nausea or Vomiting Pain: Pt. Denies Any Pain Peripheral Nerve Block: Patient did not receive a nerve block
[2022-04-07 08:16] VITALS: BP 128/90; PULSE 63; RESP 16; TEMP 36.4; O2SAT 97
== END 2022-04-07 08:27 | disposition home or self-care (01) ==
LOC: SUR 06:09
PROVIDERS: PCP Nurse Practitioner Family; Visit Provider Surgery
PROC: 0DJD8ZZ Inspection of Lower Intestinal Tract, Via Natural or Artificial Opening Endoscopic (ICD-10-PCS; CPT 45378; principal; 2022-04-07 07:30)
DX: R19.5 Other fecal abnormalities (principal); K57.30 Diverticulosis of large intestine without perforation or abscess without bleeding; K64.8 Other hemorrhoids
CPT/HCPCS: 45378

== ENCOUNTER 2022-04-21 12:15 | Outpatient (REF) | payer BC, SELFPAY ==
[2022-04-21 15:18] LABS: Calculated LDL 59 mg/dL (<100); Cholesterol 158 mg/dL (<200); HDL Cholesterol 35 mg/dL (40-60); Triglyceride 323 mg/dL (<150)
[2022-04-21 16:01] LABS: Vitamin D 25 Total 27.3 ng/mL (30-100)
[2022-04-21 18:54] LABS: Hemoglobin A1C 6.3 % (<5.7)
== END 2022-04-21 12:16 | disposition home or self-care (01) ==
LOC: NCHCN 12:15
PROVIDERS: PCP Nurse Practitioner Family; Visit Provider Nurse Practitioner Family
DX: E78.5 Hyperlipidemia, unspecified (principal); E55.9 Vitamin D deficiency, unspecified; R73.03 Prediabetes
CPT/HCPCS: 80061; 82306; 83036

== ENCOUNTER 2022-08-29 08:41 | Outpatient (CLI) | payer BC, SELFPAY ==
--- NOTE | 2022-08-29 08:30 | DI.RAD_ITS ---
Exam(s) XR HIP PELVIS ADULT BL EXAM: XR HIP PELVIS ADULT BL CLINICAL HISTORY: annual f/u BILAT AVTAR. TECHNIQUE: 2D digital imaging was performed. Three images were obtained. AP, lateral and oblique vi ews were obtained. COMPARISON: CR XR HIP PELVIS ADULT BL from 09/16/2021 FINDINGS: BONES: There are stable post operative changes present. No fracture or dislocation. JOINTS: The orthopedic hardware is in good position. No evidence of hardware loosening. SOFT TISSUE: Normal. IMPRESSION: Stable postoperative changes. DATA REPOSITORY: RADIATION DOSE DELIVERED:
--- NOTE | 2022-08-29 09:00 | DI.RAD_ITS ---
Exam(s) XR HAND RT COMPLETE EXAM: XR HAND RT COMPLETE CLINICAL HISTORY: right hand pain. TECHNIQUE: 2D digital imaging was performed of the right hand. Three images were obtained. AP, late ral and oblique views were obtained. COMPARISON: No exams were available for comparison FINDINGS: BONES: No acute fracture is present. No bony destructive lesion is seen. The bones are normally copper miner alized. JOINTS: No dislocation present. Degenerative changes are seen in the hand characterized by joint spac e narrowing and periarticular spurring. No erosions are seen. The metacarpophalangeal joints are we ll maintained. SOFT TISSUE: Normal. IMPRESSION: Degenerative changes of the hand. DATA REPOSITORY: RADIATION DOSE DELIVERED:
== END 2022-08-29 08:42 | disposition home or self-care (01) ==
PROVIDERS: PCP Nurse Practitioner Family; Referring Provider Nurse Practitioner Family; Visit Provider Student in an Organized Health Care Education/Training Program
DX: Z96.643 Presence of artificial hip joint, bilateral (principal); M19.041 Primary osteoarthritis, right hand; Z47.1 Aftercare following joint replacement surgery
CPT/HCPCS: 73521; 73130

== ENCOUNTER 2022-10-20 13:38 | Outpatient (REF) | payer BC, SELFPAY ==
[2022-10-20 16:20] LABS: Hemoglobin A1C 7.2 % (<5.7)
== END 2022-10-20 13:39 | disposition home or self-care (01) ==
LOC: NCHCN 13:38
PROVIDERS: PCP Nurse Practitioner Family; Visit Provider Nurse Practitioner Family
DX: E78.5 Hyperlipidemia, unspecified (principal); R73.03 Prediabetes; E55.9 Vitamin D deficiency, unspecified
CPT/HCPCS: 80053; 82306; 83036

== ENCOUNTER 2022-10-31 08:27 | Outpatient (REF) | payer BC, SELFPAY ==
[2022-10-31 16:36] LABS: Hemoglobin A1C 6.8 % (<5.7)
[2022-10-31 16:44] LABS: ALT 38 U/L (16-63); AST 17 U/L (15-37); Albumin 3.7 g/dL (3.4-5.0); Alkaline Phosphatase 87 U/L (46-116); Anion Gap 14.5 mmol/L (3-11); BUN 10 mg/dL (7-18); Bilirubin, Total 0.9 mg/dL (0.2-1.0); CO2 22.5 mmol/L (21.0-32.0); CREATININE 1.3 mg/dL (0.70-1.30); Calcium 9.1 mg/dL (8.5-10.1); Chloride 105 mmol/L (98-107); Estimated GFR 61.73 (mL/min/1.73m2); Glucose 243 mg/dL (74-106); Potassium 3.9 mmol/L (3.5-5.1); Sodium 142 mmol/L (136-145)
[2022-10-31 17:13] LABS: Vitamin D 25 Total 18.5 ng/mL (30-100)
== END 2022-10-31 08:28 | disposition home or self-care (01) ==
LOC: NCHCN 08:27
PROVIDERS: PCP Nurse Practitioner Family; Visit Provider Nurse Practitioner Family
DX: R73.03 Prediabetes (principal); E78.5 Hyperlipidemia, unspecified; E55.9 Vitamin D deficiency, unspecified
CPT/HCPCS: 80053; 82306; 83036

== ENCOUNTER 2022-11-10 15:37 | Outpatient (CLI) | payer BC, SELFPAY ==
--- NOTE | 2022-11-10 | DI.RAD_ITS ---
Exam(s) XR HAND RT COMPLETE EXAM: XR HAND RT COMPLETE CLINICAL HISTORY: RT HAND PAIN AND SWELLING OVER 1ST AND 2ND MCP, EVAL FOR BONY ABNORMALITY. TECHNIQUE: 2D digital imaging was performed. Three views. COMPARISON: CR XR HAND RT COMPLETE from 08/29/2022 FINDINGS: BONES: No acute fracture is present. There are small erosions versus degenerative subchondral cyst se en at the margins of the 2nd and 3rd metacarpal heads. There is no significant joint space narrowing at these levels. JOINTS: No dislocation present. There is narrowing and prominent spurring of the interphalangeal join ts of the fingers, greatest of the little finger. A carpal region is unremarkable. SOFT TISSUE: Swelling over the dorsal metacarpophalangeal region. IMPRESSION: Small erosions in the heads of the 2nd and 3rd metacarpals this could be secondary to inflammatory ar thritis. Findings typical of osteoarthritis are noted in the interphalangeal joints of fingers. DATA REPOSITORY: RADIATION DOSE DELIVERED:
== END 2022-11-10 15:57 ==
PROVIDERS: PCP Nurse Practitioner Family; Visit Provider Physician Assistant Medical
DX: M15.4 Erosive (osteo)arthritis (principal)
CPT/HCPCS: 73130

== ENCOUNTER 2023-05-19 15:53 | Emergency (ER) | payer BC, SELFPAY ==
[2023-05-19 15:56] VITALS: BP 176/101; PULSE 77; RESP 20; TEMP 36.9; O2SAT 97
--- NOTE | 2023-05-19 16:18 | ED.GENADUL_ITS ---
HPI General Mode of arrival: ambulatory . Date/Time Provider Initiated Documentation: 05/19/23 16:04 . Limitations to Documentation: no limitations . Information obtained by: patient . HPI Narrative: 62-year-old male presents with chief complaint of flank pain. Patient notes 1 week of intermittent right flank pain. Seen in [facility] today and had outpatient CT of the abdomen pelvis which revealed a 7 mm obstructing stone at right UVJ. Patient sent here for further diagnostic and treatment. Patient denies associated nausea. No fever. Pain is moderate to severe. Patient notes increased urinary frequency without hematuria. He does note some dysuria. Patient has no prior history of renal calculi but does note family members with kidney stones. Related Data Home Medications Medication Instructions Recorded Confirmed acetaminophen 500 mg tablet 500 mg PO Q6H PRN 03/23/22 05/19/23 (Tylenol Extra Strength) ibuprofen 400 mg tablet 400 mg PO Q6H PRN 05/19/23 05/19/23 tamsulosin 0.4 mg capsule 0.4 mg PO DAILY 05/19/23 05/19/23 Allergies Allergy/AdvReac Type Severity Reaction Status Date / Time fluoxetine [From Prozac] AdvReac Mild sweating Verified 05/19/23 16:00 General Stated Complaint: FlankPain HENRIETTA: 3 Review of Systems Constitutional Constitutional: Denies fever(s) Gastrointestinal Gastrointestinal: Reports as per HPI Genitourinary Genitourinary: Reports as per HPI Exam Const General: cooperative and no acute distress HENMT Mouth: moist mucous membranes Eyes Conjunctivae: normal conjunctivae Sclera: normal sclerae Neck Neck: trachea midline and supple Resp Auscultation: clear to auscultation bilaterally, no rales, no rhonchi and no wheezes Cardio Rate: regular rate and not tachycardic Rhythm: regular rhythm GI Palpation: soft, not firm, no guarding, no masses, not rigid and nontender Skin General skin exam: no rashes or lesions noted Neuro General: patient alert, patient awake, patient oriented x3 and tone normal Extrem General: no edema Psych Appearance: grossly normal Mental Status: mental status grossly normal Course Vital Signs Vital signs: Vital Signs Temperature 36.9 C 05/19/23 15:56 Pulse 77 05/19/23 15:56 Respiratory Rate 20 05/19/23 15:56 Blood Pressure 176/101 H 05/19/23 15:56 Pulse Oximetry 97 02/09/24 15:56 Temperature 36.9 C 05/19/23 15:56 Temperature Source Oral 05/19/23 15:56 Pulse 77 05/19/23 15:56 Respiratory Rate 20 05/19/23 15:56 Blood Pressure 176/101 H 05/19/23 15:56 Blood Pressure Position Sitting 05/19/23 15:56 Pulse Oximetry 97 05/19/23 15:56 Oxygen Delivery Method Room Air 05/19/23 15:56 Oxygen Flow Rate 0 05/19/23 15:56 Pain Level 10 05/19/23 15:56 Medical Decision Making 62-year-old male with 1 week of intermittent right-sided flank pain, seen in [facility] and had outpatient CT of the abdomen pelvis which revealed obstructing 7 mm calculus right UVJ. Hydronephrosis with hydroureter noted. I called and spoke with Dr. Early, on-call urologist, discussed presentation to [facility], he reviewed CT imaging and recommends routine care including Flomax and analgesia. Urinalysis reviewed: not consistent with septic stone, WBC 0-2. Patient does have trace ketones with glucosuria. Fingerstick blood sugar 189. Will initiate treatment with Flomax. Toradol IM administered for pain. Patient was informed of elevated blood sugar as well as elevated blood pressure. He was advised to follow-up with his primary care physician early next week. Disposition decision was made weighing the risks and benefits of hospitalization versus outpatient treatment, the risk for further decompensation, and the patient's wishes. The patient was stable and requested discharge. Prior to discharge, my usual and customary return precautions were reviewed with the patient - this included follow-up instructions and reason to return to the emergency department if condition worsens, does not improve as expected, or other new concerns arise. 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 states he was taking a lot of ibuprofen r/t to the ITB and started to have some hematuria (3-4 weks ago 01/2021), so he stopped the IBU and the hematuria stopped. Pt. stated she informed the pt. PCP. HTN (hypertension) Left knee DJD s/p left TKA Surgical History Status post vasectomy Status post bilateral total hip replacement (09/01/21) Hx of colonoscopy History of surgery on lower extremity IT band History of left knee replacement Iliotibial band syndrome, left leg Distal Depo-Medrol injection: 01/20/22; 05/31/21; 01/01/21; 06/08/20 S/P Distal IT band lengthenin03/09/2021 Status post total left knee replacement (03/17/20) Status post arthroscopy of right knee (05/2013) Dr. Reed Family History Maternal Uncle Family history of factor V Leiden mutation Social History Smoking/Tobacco Use Status: Current every day Tobacco Type: smokeless tobacco Smoking risk assessment performed?: Yes Alcohol Intake: current Alcohol Intake frequency: a few times a week Alcohol type: beer and hard liquor Drug use: Never Substance use type: does not use Details: alcohol: t-1, one glass Current gender identity: male Do you feel safe at home: Yes Do you feel safe in your relationship?: Yes Additional Social history: Unable to assess [facility] Discharge Plan Disposition Patient Disposition: Home Condition: Stable Discharge Details Clinical Impression: Bilateral kidney stones, Hydroureter, right, Elevated blood pressure reading, Hyperglycemia Primary Care Provider: Elizabeth Lee ED Provider: Kranthi Rahman Home Meds and New Rx's Prescriptions: Continued acetaminophen [Tylenol Extra Strength] 500 mg tablet 500 mg PO Q6H PRN tamsulosin 0.4 mg capsule 0.4 mg PO DAILY ibuprofen 400 mg tablet 400 mg PO Q6H PRN Discontinued chlorthalidone 25 mg tablet 25 mg PO DAILY cholecalciferol (vitamin D3) 1,250 mcg (50,000 unit) capsule 1,250 mcg PO QWEEK rosuvastatin 10 mg tablet 20 mg PO DAILY Patient Comments: TAKE 1 TABLET BY MOUTH DAILY Discharge Instructions Instructions: Kidney Stones (ED) Additional Instructions: Strain your urine. Take Flomax as prescribed. Please follow-up with urology. Please follow-up with your primary care physician regarding elevated blood sugar and glucose in your urine. Please also discuss your elevated blood pressure today. Return to the ER immediately for any worsening or new concerning symptoms. Referrals: [facility] [Provider Group] Discharge Data Discharge Date/Time-TO BE ENTERED AT DEPARTURE: 05/19/23 17:28
[2023-05-19] MEDS: Ketorolac 30 MG/ML VIAL IM (16:25)
[2023-05-19] MEDS: Tamsulosin 0.4 MG CAPCR PO (16:25)
[2023-05-19 16:43] LABS: Bilirubin Negative (Negative); Blood Large (Negative); Clarity Sl Cloudy (Clear); Glucose 500 mg/dL (Negative); Ketones Trace mg/dL (Negative); Leukocyte Esterase Negative (Negative); Nitrite Negative (Negative); Specific Gravity 1.025 (1.005-1.025); Urobilinogen 0.2 mg/dL (Up to 0.2); pH 5.5 (5-8)
[2023-05-19 16:49] LABS: Bacteria Rare HPF (Negative); C & S Indicated? No; Casts Negative LPF (Negative); Crystals Negative HPF (Negative); Epithelial Cells Rare HPF (Negative); Mucus Trace (Negative); WBC 0-2 HPF (0-5)
--- NOTE | 2023-05-19 17:13 | NUR.NOTE ---
Nursing Note: PT needs follow up in one week with PCP & [facility] for HTN, hyperglycemia, ketones in urine and 7mm non obstructing stone. Carolyne, ED
== END 2023-05-19 17:28 | disposition home or self-care (01) ==
LOC: ER 16:49
PROVIDERS: Emergency Provider Student in an Organized Health Care Education/Training Program; PCP Nurse Practitioner Family
DX: N13.2 Hydronephrosis with renal and ureteral calculous obstruction (principal); I10 Essential (primary) hypertension; R73.9 Hyperglycemia, unspecified; E78.5 Hyperlipidemia, unspecified; F17.290 Nicotine dependence, other tobacco product, uncomplicated
CPT/HCPCS: 82962; 96372; 99284; 81003; 81015; J1885

== ENCOUNTER 2023-05-26 10:49 | Outpatient (REF) | payer BC, SELFPAY ==
[2023-05-26 16:48] LABS: Hemoglobin A1C 7.4 % (<5.7)
[2023-05-29 11:24] LABS: Lyme Ab w Rflx to Lyme Confirm Negative (Negative)
[2023-05-29 16:39] LABS: Anaplasma phagocytophilum Negative (Negative); B. miyamotoi PCR Negative (Negative); Babesia divergens/MO-1 Negative (Negative); Babesia duncani Negative (Negative); Babesia microti Negative (Negative); Ehrlichia chaffeensis Negative (Negative); Ehrlichia ewingii/canis Negative (Negative); Ehrlichia muris eauclairensis Negative (Negative)
[2023-06-01 23:40] LABS: Source: Kidney
== END 2023-05-26 10:50 | disposition home or self-care (01) ==
LOC: NCHCN 10:49
PROVIDERS: PCP Nurse Practitioner Family; Referring Provider Nurse Practitioner Family; Visit Provider Nurse Practitioner Family
DX: N20.2 Calculus of kidney with calculus of ureter (principal); E11.9 Type 2 diabetes mellitus without complications
CPT/HCPCS: 82306; 87798; 82365; 83036; 86618

== ENCOUNTER 2023-08-24 13:26 | Outpatient (REF) | payer BC, SELFPAY ==
[2023-08-24 16:53] LABS: COMMENT (LAB VIEW ONLY) 140.81 mg/dL; Microalb ug/mg Crea 11.5 ug/mg Cr
== END 2023-08-24 13:27 | disposition home or self-care (01) ==
LOC: NCHCN 13:26
PROVIDERS: PCP Nurse Practitioner Family; Visit Provider Nurse Practitioner Family
DX: E11.9 Type 2 diabetes mellitus without complications (principal)
CPT/HCPCS: 82043; 82570

== ENCOUNTER 2023-11-24 15:11 | Outpatient (REF) | payer BC, SELFPAY ==
[2023-11-24 16:18] LABS: ALT 42 U/L (16-63); AST 19 U/L (15-37); Alkaline Phosphatase 87 U/L (46-116); Anion Gap 11.2 mmol/L (3-11); BUN 14 mg/dL (7-18); Bilirubin, Total 1.48 mg/dL (0.2-1.0); CO2 27.8 mmol/L (21.0-32.0); CREATININE 1.1 mg/dL (0.70-1.30); Calcium 9.5 mg/dL (8.5-10.1); Calculated LDL 79 mg/dL (<100); Chloride 103 mmol/L (98-107); Cholesterol 151 mg/dL (<200); Estimated GFR 74.96 (mL/min/1.73m2); Glucose 131 mg/dL (74-106); HDL Cholesterol 35 mg/dL (40-60); Potassium 4.8 mmol/L (3.5-5.1); Sodium 142 mmol/L (136-145); Total Protein 6.9 g/dL (6.4-8.2); Triglyceride 187 mg/dL (<150)
[2023-11-24 16:34] LABS: Hemoglobin A1C 7.1 % (<5.7)
== END 2023-11-24 15:12 | disposition home or self-care (01) ==
LOC: NCHCN 15:11
PROVIDERS: PCP Nurse Practitioner Family; Visit Provider Nurse Practitioner Family
DX: E11.9 Type 2 diabetes mellitus without complications (principal); E78.5 Hyperlipidemia, unspecified
CPT/HCPCS: 80053; 80061; 83036

== ENCOUNTER 2023-12-19 19:53 | Emergency (ER) | payer BC, SELFPAY ==
[2023-12-19 20:01] VITALS: BP 162/82; PULSE 70; RESP 20; TEMP 36.9; O2SAT 94
[2023-12-19 20:03] VITALS: BP 162/82; PULSE 70; RESP 20; TEMP 36.9; O2SAT 94
--- NOTE | 2023-12-19 20:31 | ED.GENADUL_ITS ---
Discharge Plan Disposition Patient Disposition: Home Condition: Stable Discharge Details Clinical Impression: Kidney stone, Hematuria Primary Care Provider: Elizabeth Lee ED Provider: Jasmine Montoya Home Meds and New Rx's Prescriptions: New tamsulosin [Flomax] 0.4 mg capsule 0.4 mg PO DAILY Qty: 14 0RF oxycodone 5 mg capsule 5 mg PO Q8H PRNQty: 7 0RF ondansetron 4 mg tablet,disintegrating 4 mg PO Q8H PRNQty: 10 0RF No Action acetaminophen [Tylenol Extra Strength] 500 mg tablet 500 mg PO Q6H PRN metformin 500 mg tablet 500 mg PO BID ibuprofen 400 mg tablet 400 mg PO Q6H PRN aspirin [Children's Aspirin] 81 mg tablet,chewable 81 mg PO DAILY rosuvastatin 5 mg tablet 5 mg PO ONCE Patient Comments: TAKE ONE TABLET BY MOUTH EVERY DAY Discharge Instructions Instructions: Kidney Stone, Adult ED Additional Instructions: You were seen in the emergency department today for evaluation of flank pain which is most concerning for kidney stone. You had blood in your urine but no evidence of infection, and it is safe for you to go home and continue to use multimodal pain management as well as Flomax to attempt to pass the stone. Please strain your urine to see if you do pass the stone, but if you are still having flank pain in the next 3 to 5 days you need to follow-up with your primary care provider for next steps. Please return to the emergency department if you start passing urine, develop a fever, or have any other concerning symptoms. Thank you for allowing us to be part of your care. HPI General Mode of arrival: EMS . Date/Time Provider Initiated Documentation: 12/19/23 20:06 . Information obtained by: patient, EMS and old records reviewed . HPI Narrative: HPI: This is a 63-year-old male patient with a past medical history significant for high cholesterol, diabetes, as well as a diagnosis of kidney stones made in May 2023, presenting for evaluation of left flank pain. The patient reports that 3 days ago he started to have left flank pain, which is slowly moved more lateral over the last few days. He has been managing his pain at home with Tylenol, and has been taking an [id number] herbal supplement for urine flow. He has been able to maintain his hydration and nutrition but did develop nausea with vomiting today. His pain has worsened, prompting him to seek care at the emergency department. He has not noted any dysuria but has noted gross hematuria. States that he is not experiencing any abdominal, chest, or testicular pain. He has not had fevers or chills, states that he passed his last 7mm stones spontaneously with conservative management. I was able to review the patient's notes and CT scan from May, which showed numerous stones in his kidneys, with no associated aortic pathology appreciated. Exam: Gen: Awake and alert, appears uncomfortable, having difficulty finding comfortable seat HEENT: Non-icteric sclera Neck: Supple Lungs: No apparent respiratory distress, normal respiratory effort. CV: Appears well perfused, strong distal pulses Abdomen: Non-distended, soft, nontender MSK: Moves 4 extremities without apparent limitation in ROM. Left-sided CVA tenderness with no overlying skin changes. Skin: Visualized skin without rashes, cyanosis. Neuro: Normal Gait, no obvious focal deficits or facial asymmetry. Speaks in full, clear sentences. Psych: Appropriate for situation. MDM: My differential includes but is not limited to kidney stone, pyelonephriti s, papillary nephric abscess, renal failure. Considered metabolic and electrolyte derangements, kidney injury and liver dysfunction, anemia. Given the patient's characteristic symptoms consistent with his last stone, and his reassuring imaging obtained at that time, I have a lower concern for intra- abdominal pathology and aortic disease. We will obtain laboratory studies to include CBC, CMP, troponin (no chest pain to suggest ACS, though patient does have diabetes as a risk factor), and urinalysis. I will provide the patient with a liter of lactated Ringer's, and pain and nausea management to include Toradol, Dilaudid, and Zofran. I will obtain a bedside ultrasound to evaluate for hydronephrosis. ED Course: I independently interpreted the laboratory studies, which show no significant leukocytosis, anemia, or thrombocytopenia. The chemistry panel is without evidence of electrolyte abnormality, kidney dysfunction, or liver injury. Urinalysis demonstrates hematuria but no infectious findings. Ultrasound performed, which shows minimal to small hydronephrosis of the left kidney, right kidney and bladder were unremarkable, most concerning for repeat renal stone. The patient had complete resolution of his symptoms with the above-noted pain management strategy, and I do believe that he is appropriate for conservative attempt at stone passage in the outpatient environment. Pre scriptions were provided for Flomax, Zofran, oxycodone, and he was instructed on multimodal pain management and primary care follow-up in the event that his symptoms persist or worsen. He understands return to the emergency department for fever, failure to pass urine, or other concerning symptoms. At this time, the patient has had a full medical evaluation and is safe for discharge to home. They are hemodynamically stable, ambulatory, and tolerating PO. They are understanding of the follow-up plan and return precautions. They left our facility without incident. Jasmine Montoya MD Related Data Home Medications ?Medication ?Instructions ?Recorded ?Confirmed acetaminophen 500 mg tablet 500 mg PO Q6H PRN 03/23/22 12/19/23 (Tylenol Extra Strength) ibuprofen 400 mg tablet 400 mg PO Q6H PRN 05/19/23 12/19/23 metformin 500 mg tablet 500 mg PO BID 06/05/23 12/19/23 aspirin 81 mg chewable tablet 81 mg PO DAILY 12/19/23 12/19/23 (Children's Aspirin) ondansetron 4 mg disintegrating 4 mg PO Q8H PRN #10 tabs 12/19/23 tablet oxycodone 5 mg capsule 5 mg PO Q8H PRN #7 caps 12/19/23 rosuvastatin 5 mg tablet 5 mg PO ONCE 12/19/23 12/19/23 tamsulosin 0.4 mg capsule (Flomax) 0.4 mg PO DAILY #14 caps 12/19/23 Previous Rx's ?Medication ?Instructions ?Recorded ondansetron 4 mg disintegrating 4 mg PO Q8H PRN #10 tabs 12/19/23 tablet oxycodone 5 mg capsule 5 mg PO Q8H PRN #7 caps 12/19/23 tamsulosin 0.4 mg capsule (Flomax) 0.4 mg PO DAILY #14 caps 12/19/23 Allergies Allergy/AdvReac Type Severity Reaction Status Date / Time fluoxetine (From Prozac) AdvReac Mild sweating Verified 12/19/23 20:06 General Stated Complaint: Abd Prob HENRIETTA: 3 Course Vital Signs Vital signs: Vital Signs Temperature 36.9 C 12/19/23 20:01 Pulse 70 12/19/23 20:01 Respiratory Rate 20 12/19/23 20:01 Blood Pressure 162/82 H 12/19/23 20:01 Pulse Oximetry 94 12/19/23 20:01 Temperature 36.9 C 12/19/23 20:03 Pulse 70 12/19/23 20:03 Respiratory Rate 20 12/19/23 20:03 Respiratory Effort Normal 12/19/23 20:03 Blood Pressure 162/82 H 12/19/23 20:03 Blood Pressure Position Sitting 12/19/23 20:03 Pulse Oximetry 94 12/19/23 20:03 Oxygen Delivery Method Room Air 12/19/23 20:03 Oxygen Flow Rate 0 12/19/23 20:01 Pain Level 10 12/19/23 20:03 Medical Decision Making Quality:SDOH Health Related Social Needs: No Data to Display PFSH All Active Problems (Updated 12/19/23 @ 21:37 by Jasmine Montoya MD) Hematuria (Acute) Kidney stone (Chronic) 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 states he was taking a lot of ibuprofen r/t to the ITB and started to have some hematuria (3-4 weks ago 01/2021), so he stopped the IBU and the hematuria stopped. Pt. stated she informed the pt. PCP. HTN (hypertension) Left knee DJD s/p left TKA Surgical History Status post vasectomy Status post bilateral total hip replacement (09/01/21) Hx of colonoscopy History of surgery on lower extremity IT band History of left knee replacement Iliotibial band syndrome, left leg Distal Depo-Medrol injection: 01/20/22; 05/31/21; 01/01/21; 06/08/20 S/P Distal IT band lengthenin03/09/2021 Status post total left knee replacement (03/17/20) Status post arthroscopy of right knee (05/2013) Dr. Reed Family History Maternal Uncle Family history of factor V Leiden mutation Social History Smoking/Tobacco Use Status: Current every day Tobacco Type: smokeless tobacco Smoking risk assessment performed?: Yes Alcohol Intake: current Alcohol Intake frequency: a few times a week Alcohol type: beer and hard liquor Drug use: Never Substance use type: does not use Details: alcohol: t-1, one glass Current gender identity: male Do you feel safe at home: Yes Do you feel safe in your relationship?: Yes Additional Social history: Unable to assess christina CIFUENTES Have you Been Recently Intoxicated or Drunk Within the Last 30 days?: No Have you Ever Experienced Previous Episodes of Alcohol Withdrawal?: No Have you ever Experienced Withdrawal Seizures?: No Have you ever Experienced Delirium Tremens(DT)s?: No Have you ever undergone Alcohol Rehabilitation Treatment (i.e, inpt ot outpatient treatment programs)?: No Have you ever Experienced Blackouts?: No Have you ever Combined Alcohol with other Downers within the last 90 days?: No Have you ever Combined Alcohol with any other Substance of Abuse during the last 90 days?: No Positive Blood Alcohol level on Presentation? [PCS.BAL]: No Evidence of Increased Autonomic Activity (i.e. HR>120, tremor, sweating, agitation, nausea)?: No Result: 0 POCUS Exam (ED) Limited Retroperitoneal(Renal)Exam DATE OF EXAM: 12/19/23 TIME OF EXAM: 20:00 PROVIDER THAT PERFORMED THE STUDY: Jasmine Montoya IS THIS A REPEAT EXAM DURING THIS ENCOUNTER: No REASON FOR EXAM: Flank pain/left side VISUALIZED STRUCTURES: Left kidney, Right kidney and Other structures: Bladder PERTINENT FINDINGS/IMPRESSION: Hydronephrosis present (Minimal) left side Exam complete
[2023-12-19 20:33] LABS: Abs Immature Grans 0.04 10^3/uL (0.0-0.06); Absolute Basophil Count 0.04 10^3/uL (0.0-0.2); Absolute Eosinophil Count 0.21 10^3/uL (0.0-0.7); Absolute Lymphocyte Count 2.54 10^3/uL (1.2-3.4); Absolute Monocyte Count 0.97 10^3/uL (0.1-0.8); Basophils % 0.4 %; Eosinophils % 1.9 %; HCT 43.6 % (40.0-50.0); HGB 15.1 g/dL (13.5-17.5); Immature Grans % 0.4 %; Lymphocytes % 22.7 %; MCH 30.8 pg (27.0-33.0); MCHC 34.6 % (32.0-36.0); MCV 89 fL (80-95); MPV 8.8 fL (8.0-11.0); Monocytes % 8.7 %; Neutrophils % 65.9 %; Platelet Count 320 10^3/uL (130-400); RBC 4.91 10^6/uL (4.36-5.78); RDW 12.3 % (11.8-14.1); RDW-SD 40.1 fL; WBC 11.17 10^3/uL (4.4-10.8)
[2023-12-19] MEDS: Ketorolac 15 MG/ML VIAL IVP (20:33)
[2023-12-19] MEDS: Lactated Ringers 1,000 ML 1000 ML IV (20:33)
[2023-12-19] MEDS: Ondansetron 4 MG/2 ML VIAL IVP (20:33)
[2023-12-19] MEDS: HYDROmorphone 2 MG/ML SYR 0.5 MG IVP (20:33)
[2023-12-19 20:34] LABS: Absolute Neutrophil Count 7.36 10^3/uL (1.2-6.7)
[2023-12-19 20:55] LABS: ALT 30 U/L (16-63); AST 15 U/L (15-37); Alkaline Phosphatase 87 U/L (46-116); Anion Gap 12.6 mmol/L (3-11); BUN 20 mg/dL (7-18); Bilirubin, Total 0.79 mg/dL (0.2-1.0); CO2 23.4 mmol/L (21.0-32.0); CREATININE 1.3 mg/dL (0.70-1.30); Chloride 105 mmol/L (98-107); Estimated GFR 61.35 (mL/min/1.73m2); Glucose 197 mg/dL (74-106); Lipase 34 U/L (16-77); Magnesium 2.1 mg/dL (1.8-2.4); Potassium 4.2 mmol/L (3.5-5.1); Sodium 141 mmol/L (136-145); Total Protein 7.6 g/dL (6.4-8.2); Troponin I 6 ng/L (4-76)
[2023-12-19 21:24] LABS: Bilirubin Negative (Negative); Blood Moderate (Negative); Clarity Clear (Clear); Glucose >=1000 mg/dL (Negative); Ketones 15 mg/dL (Negative); Leukocyte Esterase Negative (Negative); Nitrite Negative (Negative); Specific Gravity >= 1.030 (1.005-1.025); Urobilinogen 0.2 mg/dL (Up to 0.2); pH 5.5 (5-8)
[2023-12-19 21:42] LABS: Bacteria Rare HPF (Negative); C & S Indicated? No; Casts Negative LPF (Negative); Crystals Few Uric Acid HPF (Negative); Epithelial Cells Rare HPF (Negative); Mucus Trace (Negative); WBC Negative HPF (0-5)
[2023-12-19] MEDS: Ondansetron O.D.T. 4 MG TABEF, 3 TABS/BTL PO (21:43)
[2023-12-19] MEDS: Tamsulosin 0.4 MG CAPCR PO (21:44)
[2023-12-19 22:00] VITALS: BP 143/85; PULSE 74; RESP 14; TEMP 37; O2SAT 95
== END 2023-12-19 22:00 | disposition home or self-care (01) ==
PROVIDERS: Emergency Provider Emergency Medicine; PCP Nurse Practitioner Family
DX: N13.2 Hydronephrosis with renal and ureteral calculous obstruction (principal); R31.9 Hematuria, unspecified; I10 Essential (primary) hypertension; E78.5 Hyperlipidemia, unspecified; E11.9 Type 2 diabetes mellitus without complications; F17.290 Nicotine dependence, other tobacco product, uncomplicated; Z79.82 Long term (current) use of aspirin; Z79.84 Long term (current) use of oral hypoglycemic drugs
CPT/HCPCS: 36415; 76775; 80053; 83690; 96361; 96374; 96375; 99284; 81003; 81015; 83735; 84484; 85025; J1170; J1885; J2405

== ENCOUNTER 2023-12-21 00:05 | Emergency (ER) | payer BC, SELFPAY ==
[2023-12-21 00:08] VITALS: BP 152/84; PULSE 78; RESP 22; TEMP 36.4; O2SAT 97
[2023-12-21 00:13] VITALS: PULSE 77; RESP 22; TEMP 36.5; O2SAT 97
[2023-12-21 00:27] LABS: Bilirubin Negative (Negative); Blood Large (Negative); Clarity Clear (Clear); Glucose Negative (Negative); Ketones Negative (Negative); Leukocyte Esterase Negative (Negative); Nitrite Negative (Negative); Specific Gravity >= 1.030 (1.005-1.025); pH 5.5 (5-8)
[2023-12-21 00:33] LABS: Bacteria Negative HPF (Negative); C & S Indicated? No; Casts Negative LPF (Negative); Crystals Negative HPF (Negative); Epithelial Cells Negative HPF (Negative); Mucus Negative (Negative); WBC Negative HPF (0-5)
[2023-12-21] MEDS: Ketorolac 15 MG/ML VIAL IM (00:54)
--- NOTE | 2023-12-21 00:57 | ED.GENADUL_ITS ---
Discharge Plan Disposition Patient Disposition: Home Condition: Good Discharge Details Clinical Impression: Kidney stone Primary Care Provider: Elizabeth Lee ED Provider: Luanne Mike Home Meds and New Rx's Prescriptions: New hydromorphone 2 mg tablet 2 mg PO Q6H PRNQty: 3 0RF Continued acetaminophen [Tylenol Extra Strength] 500 mg tablet 500 mg PO Q6H PRN metformin 500 mg tablet 500 mg PO BID lisinopril 5 mg tablet 5 mg PO DAILY Patient Comments: TAKE ONE TABLET BY MOUTH EVERY DAY ibuprofen 400 mg tablet 400 mg PO Q6H PRN aspirin [Children's Aspirin] 81 mg tablet,chewable 81 mg PO DAILY rosuvastatin 5 mg tablet 5 mg PO ONCE Patient Comments: TAKE ONE TABLET BY MOUTH EVERY DAY tamsulosin [Flomax] 0.4 mg capsule 0.4 mg PO DAILY Qty: 14 0RF ondansetron 4 mg tablet,disintegrating 4 mg PO Q8H PRNQty: 10 0RF Discontinued oxycodone 5 mg capsule 5 mg PO Q8H PRNQty: 7 0RF Discharge Instructions Instructions: Kidney Stone, Adult ED Additional Instructions: Tylenol and ibuprofen over the counter every 4-6 hours; follow the directions on the bottle. Stop taking the oxycodone. You can take hydromorphone 2mg up to every 6 hours as needed for severe pain that has not responded to OTC medications. Call your primary care doctor today to schedule an appointment for within the next 48 hours to followup on your visit here and to manage your pain going forward. Return to the emergency department for new or worsneing symptoms including fever, inability to urinate, or if you have any other concerns. Referrals: Elizabeth Lee [Primary Care Provider] - [facility] General Mode of arrival: ambulatory . Date/Time Provider Initiated Documentation: 12/21/23 00:14 . Limitations to Documentation: no limitations . Information obtained by: patient . HPI Narrative: 63yo M with T2DM, hx of kidney stones presenting with left flank pain consistent with his prior stone. Pain is sharp, severe, comes in waves. Seen in this ED yesterday and discharged with home oxycodone; oxycodone and ibuprofen at home have not been helping the pain. Otherwise in his usual state of health with no fevers, chills, rash, nasuea, vomiting, dysuria, chest pain, shortness of breath, or other concerns. Related Data Home Medications ?Medication ?Instructions ?Recorded ?Confirmed acetaminophen 500 mg tablet 500 mg PO Q6H PRN 03/23/22 12/21/23 (Tylenol Extra Strength) ibuprofen 400 mg tablet 400 mg PO Q6H PRN 05/19/23 12/21/23 metformin 500 mg tablet 500 mg PO BID 06/05/23 12/21/23 aspirin 81 mg chewable tablet 81 mg PO DAILY 12/19/23 12/21/23 (Children's Aspirin) ondansetron 4 mg disintegrating 4 mg PO Q8H PRN #10 tabs 12/19/23 12/21/23 tablet rosuvastatin 5 mg tablet 5 mg PO ONCE 12/19/23 12/21/23 tamsulosin 0.4 mg capsule (Flomax) 0.4 mg PO DAILY #14 caps 12/19/23 12/21/23 hydromorphone 2 mg tablet 2 mg PO Q6H PRN #3 tabs 12/21/23 lisinopril 5 mg tablet 5 mg PO DAILY 12/21/23 12/21/23 Previous Rx's ?Medication ?Instructions ?Recorded ondansetron 4 mg disintegrating 4 mg PO Q8H PRN #10 tabs 12/19/23 tablet tamsulosin 0.4 mg capsule (Flomax) 0.4 mg PO DAILY #14 caps 12/19/23 hydromorphone 2 mg tablet 2 mg PO Q6H PRN #3 tabs 12/21/23 Allergies Allergy/AdvReac Type Severity Reaction Status Date / Time fluoxetine (From Prozac) AdvReac Mild sweating Verified 12/19/23 20:06 General Stated Complaint: FlankPain HENRIETTA: 3 Review of Systems Narrative: see HPI Exam Narrative Exam Narrative: General: Alert, well appearing, well nourished. Head: Normocephalic, atraumatic Neck: Trachea midline, ?Neck supple. ENT: ?MMM.? No oropharygeal lesions or exudate. Cardiac: ?RRR, no murmurs appreciated Resp: No respiratory distress. CTAB. Abd: ?Soft, non-distended, nontender : ?No suprapubic tenderness. No CVA tenderness. Extremities: ?No deformities.? No peripheral edema. Neurologic: GCS 15. ? Moves all extremities freely against gravity Course Vital Signs Vital signs: Vital Signs Temperature 36.4 C 12/21/23 00:08 Pulse 78 12/21/23 00:08 Respiratory Rate 22 12/21/23 00:08 Blood Pressure 152/84 H 12/21/23 00:08 Pulse Oximetry 97 12/21/23 00:08 Temperature 36.5 C 12/21/23 00:13 Temperature Source Temporal Artery Scan 12/21/23 00:13 Pulse 77 12/21/23 00:13 Respiratory Rate 22 12/21/23 00:13 Respiratory Effort Normal, Non-Labored 12/21/23 00:13 Blood Pressure 152/84 H 12/21/23 00:08 Blood Pressure Position Sitting 12/21/23 00:08 Pulse Oximetry 97 12/21/23 00:13 Oxygen Delivery Method Room Air 12/21/23 00:13 Oxygen Flow Rate 0 12/21/23 00:08 Pain Level 8 12/21/23 00:13 Lab/Test Results Lab/Test Results: Laboratory Tests Range/Units 12/21/23 00:20 Urine Color (Yellow) Yellow Urine Clarity (Clear) Clear Urine pH (5-8) 5.5 Ur Specific Serena (1.005-1.025) >= 1.030 H Urine Protein (Neg-Trace) mg/dL Trace Urine Ketones (Negative) mg/dL Negative Urine Blood (Negative) Large H Urine Nitrite (Negative) Negative Urine Bilirubin (Negative) Negative Urine Urobilinogen (Up to 0.2) mg/dL 1.0 H Ur Leukocyte Esterase (Negative) Negative Urine RBC (0-2) HPF 10-20 H Urine WBC (0-5) HPF Negative Ur Epithelial Cells (Negative) HPF Negative Urine Crystals (Negative) HPF Negative Urine Bacteria (Negative) HPF Negative Urine Casts (Negative) LPF Negative Urine Mucus (Negative) Negative Ur Culture Indicated? No Urine Glucose (Negative) mg/dL Negative Medical Decision Making 63yo M with T2DM, hx of kidney stones presenting with left flank pain consistent with his prior stone. Seen in this ED yesterday and discharged with home oxycodone; oxycodone and ibuprofen at home have not been helping the pain. Otherwise in his usual state of health. Vital signs reassuring on arrival, non- toxic on exam with no abdominal or CVA tenderness. Will give toradol here, tylenol, and try PO dilaudid. Not suggestive of infected kidney stone, pyelonephritis, sepsis, aortic pathology. Would not get labs or CT imaging at this time. UA not infected, hematuria consistent with nephrolithiasis. ED visit note from 12/18 reviewed with US showing mild left hydronephrosis and reassuring laboratory workup; would not repeat today. On reassessment he reports his pain has improved and is manageable. Discharged with short course of hydromorphone and instructed to followup with his PCP within the next 2 days. Discharged home; discharge instructions and return precautions were reviewed with patient who verbalized understanding. All questions were answered and he is in full agreement with the plan. Medical Records Medical records reviewed: Yes I reviewed the patient's medical records. Lab Data Lab results reviewed: Yes I reviewed the patient's lab results. Labs: Laboratory Tests Range/Units 12/21/23 00:20 Urine Color (Yellow) Yellow Urine Clarity (Clear) Clear Urine pH (5-8) 5.5 Ur Specific Serena (1.005-1.025) >= 1.030 H Urine Protein (Neg-Trace) mg/dL Trace Urine Ketones (Negative) mg/dL Negative Urine Blood (Negative) Large H Urine Nitrite (Negative) Negative Urine Bilirubin (Negative) Negative Urine Urobilinogen (Up to 0.2) mg/dL 1.0 H Ur Leukocyte Esterase (Negative) Negative Urine RBC (0-2) HPF 10-20 H Urine WBC (0-5) HPF Negative Ur Epithelial Cells (Negative) HPF Negative Urine Crystals (Negative) HPF Negative Urine Bacteria (Negative) HPF Negative Urine Casts (Negative) LPF Negative Urine Mucus (Negative) Negative Ur Culture Indicated? 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 states he was taking a lot of ibuprofen r/t to the ITB and started to have some hematuria (3-4 weks ago 01/2021), so he stopped the IBU and the hematuria stopped. Pt. stated she informed the pt. PCP. HTN (hypertension) Left knee DJD s/p left TKA Surgical History Status post vasectomy Status post bilateral total hip replacement (09/01/21) Hx of colonoscopy History of surgery on lower extremity IT band History of left knee replacement Iliotibial band syndrome, left leg Distal Depo-Medrol injection: 01/20/22; 05/31/21; 01/01/21; 06/08/20 S/P Distal IT band lengthenin03/09/2021 Status post total left knee replacement (03/17/20) Status post arthroscopy of right knee (05/2013) Dr. Reed Family History Maternal Uncle Family history of factor V Leiden mutation Social History Smoking/Tobacco Use Status: Current every day Tobacco Type: smokeless tobacco Smoking risk assessment performed?: Yes Alcohol Intake: current Alcohol Intake frequency: a few times a week Alcohol type: beer and hard liquor Drug use: Never Substance use type: does not use Details: alcohol: t-1, one glass Housing: house Current gender identity: male Do you feel safe at home: Yes Do you feel safe in your relationship?: Yes Additional Social history: Unable to assess privatrajan PAWSS Have you Been Recently Intoxicated or Drunk Within the Last 30 days?: No Have you Ever Experienced Previous Episodes of Alcohol Withdrawal?: No Have you ever Experienced Withdrawal Seizures?: No Have you ever Experienced Delirium Tremens(DT)s?: No Have you ever undergone Alcohol Rehabilitation Treatment (i.e, inpt ot outpati ent treatment programs)?: No Have you ever Experienced Blackouts?: No Have you ever Combined Alcohol with other Downers within the last 90 days?: No Have you ever Combined Alcohol with any other Substance of Abuse during the last 90 days?: No Positive Blood Alcohol level on Presentation? [PCS.BAL]: No Evidence of Increased Autonomic Activity (i.e. HR>120, tremor, sweating, agitation, nausea)?: No Result: 0
[2023-12-21] MEDS: HYDROmorphone 2 MG TAB PO ×2 (01:02→01:39)
[2023-12-21] MEDS: Acetaminophen 500 MG TAB 1000 MG PO (01:02)
[2023-12-21 01:41] VITALS: BP 152/84; PULSE 77; RESP 22; TEMP 36.5; O2SAT 97
== END 2023-12-21 01:41 | disposition home or self-care (01) ==
PROVIDERS: Emergency Provider Student in an Organized Health Care Education/Training Program; PCP Nurse Practitioner Family
DX: R10.9 Unspecified abdominal pain (principal); N20.0 Calculus of kidney; I10 Essential (primary) hypertension; E78.5 Hyperlipidemia, unspecified; F17.290 Nicotine dependence, other tobacco product, uncomplicated; E11.9 Type 2 diabetes mellitus without complications; Z79.84 Long term (current) use of oral hypoglycemic drugs; Z79.82 Long term (current) use of aspirin
CPT/HCPCS: 96372; 99284; 81003; 81015; 99283; J1885

== ENCOUNTER 2023-12-26 09:23 | Outpatient (REF) | payer BC, SELFPAY ==
[2024-01-05 13:41] LABS: Source: Passed Stone
== END 2023-12-26 09:24 | disposition home or self-care (01) ==
LOC: LBN 09:23
PROVIDERS: PCP Nurse Practitioner Family; Visit Provider Nurse Practitioner Gerontology
DX: N20.0 Calculus of kidney (principal)
CPT/HCPCS: 82365

== ENCOUNTER 2024-03-18 09:40 | Outpatient (REF) | payer BC, SELFPAY ==
[2024-03-18 16:05] LABS: Hemoglobin A1C 7.4 % (<5.7)
[2024-03-18 16:38] LABS: ALT 40 U/L (16-63); AST 15 U/L (15-37); Albumin 3.8 g/dL (3.4-5.0); Alkaline Phosphatase 89 U/L (46-116); Anion Gap 13.3 mmol/L (3-11); BUN 12 mg/dL (7-18); Bilirubin, Total 1.17 mg/dL (0.2-1.0); CO2 24.7 mmol/L (21.0-32.0); CREATININE 1.3 mg/dL (0.70-1.30); Calcium 9.3 mg/dL (8.5-10.1); Calculated LDL 72 mg/dL (<100); Chloride 105 mmol/L (98-107); Cholesterol 170 mg/dL (<200); Estimated GFR 61.35 (mL/min/1.73m2); Glucose 218 mg/dL (74-106); HDL Cholesterol 39 mg/dL (40-60); Potassium 4.2 mmol/L (3.5-5.1); Sodium 143 mmol/L (136-145); Total Protein 6.9 g/dL (6.4-8.2); Triglyceride 297 mg/dL (<150)
== END 2024-03-18 09:41 | disposition home or self-care (01) ==
LOC: NCHCN 09:40
PROVIDERS: PCP Nurse Practitioner Family; Visit Provider Nurse Practitioner Family
DX: I10 Essential (primary) hypertension (principal); E11.9 Type 2 diabetes mellitus without complications; E78.5 Hyperlipidemia, unspecified
CPT/HCPCS: 80053; 80061; 83036

== ENCOUNTER 2024-05-27 12:01 | Outpatient (CLI) | payer OTHER, SELFPAY ==
--- NOTE | 2024-05-27 12:25 | DI.RAD_ITS ---
Exam(s) XR CHEST 2V PA LATERAL EXAM: XR CHEST 2V PA LATERAL CLINICAL HISTORY: R05.9 Cough TECHNIQUE: 2D digital imaging was performed of the chest. Two images were obtained. PA and lateral views were obtained. COMPARISON: CR LEFT RIBS TO INCLUDE CXR from 03/27/2012 FINDINGS: MEDIASTINUM: Normal. HEART: Normal. PULMONARY VASCULATURE: Normal. LUNGS: There is an infiltrate seen in the left lower lobe in the retrocardiac region. PLEURAL SPACE: No pleural effusion or pneumothorax. BONE:Within normal limits for the patient's age. OTHER FINDINGS:Normal. IMPRESSION: Left lower lobe infiltrate. DATA REPOSITORY: RADIATION DOSE DELIVERED:
== END 2024-05-27 12:21 ==
PROVIDERS: PCP Nurse Practitioner Family; Visit Provider Nurse Practitioner Family
DX: R91.8 Other nonspecific abnormal finding of lung field (principal)
CPT/HCPCS: 71046

== ENCOUNTER 2024-06-17 14:01 | Outpatient (REF) | payer OTHER, SELFPAY ==
[2024-06-17 16:43] LABS: Bilirubin, Direct 0.3 mg/dL (0.0-0.2); Bilirubin, Total 1.3 mg/dL (0.2-1.0); Uric Acid 8.3 mg/dL (3.5-7.2)
== END 2024-06-17 14:02 | disposition home or self-care (01) ==
LOC: NCHCN 14:01
PROVIDERS: PCP Nurse Practitioner Family; Visit Provider Nurse Practitioner Family
DX: R17 Unspecified jaundice (principal); N20.0 Calculus of kidney
CPT/HCPCS: 82247; 82248; 84550

== ENCOUNTER 2024-08-07 11:14 | Emergency (ER) | payer OTHER, SELFPAY ==
--- NOTE | 2024-08-07 11:15 | DI.RAD_ITS ---
Exam(s) XR HAND LT COMPLETE EXAM: XR HAND LT COMPLETE CLINICAL HISTORY: 4th finger trauma, laceration. TECHNIQUE: 2D digital imaging was performed. Three views. COMPARISON: CR XR HAND RT COMPLETE from 11/10/2022 FINDINGS: BONES: Amputation of the tip of the ring finger. On portion of the tuft is amputated. Remaining por tion of the tuft shows fracture fragments. No bony destructive lesion is seen. JOINTS: No dislocation present. Mild to moderate degenerative changes of the interphalangeal joints. SOFT TISSUE: Amputation of the distal portion of the ring finger. Large soft tissue defect. IMPRESSION: Large soft tissue defect with amputation of a portion of the tuft of the ring finger. DATA REPOSITORY: RADIATION DOSE DELIVERED:
[2024-08-07 11:26] VITALS: BP 138/87; PULSE 78; RESP 15; TEMP 36.6; O2SAT 98
--- NOTE | 2024-08-07 11:33 | ED.GENADUL_ITS ---
Discharge Plan Disposition Patient Disposition: Home Condition: Stable Discharge Details Clinical Impression: Amputation of left ring finger, Open fracture of phalanx of left ring finger Primary Care Provider: Elizabeth Lee ED Provider: Uma Lin Home Meds and New Rx's Prescriptions: New cephalexin 500 mg tablet 500 mg PO BID 10 Days Qty: 20 0RF No Action acetaminophen [Tylenol Extra Strength] 500 mg tablet 500 mg PO Q6H PRN allopurinol 100 mg tablet 100 mg PO DAILY metformin 500 mg tablet 1,000 mg PO DAILY lisinopril 5 mg tablet 5 mg PO DAILY Patient Comments: TAKE ONE TABLET BY MOUTH EVERY DAY ibuprofen 400 mg tablet 400 mg PO Q6H PRN aspirin [Children's Aspirin] 81 mg tablet,chewable 81 mg PO DAILY rosuvastatin 5 mg tablet 5 mg PO ONCE Patient Comments: TAKE ONE TABLET BY MOUTH EVERY DAY levofloxacin 500 mg tablet 500 mg PO DAILY Patient Comments: TAKE ONE TABLET BY MOUTH EVERY DAY FOR 7 DAYS Discharge Instructions Instructions: Amputation of the Finger or Fingertip, Finger Fracture ED Additional Instructions: Please follow-up with [facility] orthopedics within the next week. You were placed on the follow-up list they should call you to make you an appointment. Please leave the dressing on for the at least 24 hours. If it begins to bleed again please apply pressure for at least 15 minutes or reinforce the dressing. If you cannot get it to stop bleeding please return to the ER. You were given IV antibiotics here in the department. Please take the antibiotics at home twice daily with yogurt or probiotic as directed. Take the pain medication for any pain not relieved by Tylenol or ibuprofen. Have the sutures removed in 7 to 10 days or as directed by orthopedics. Referrals: Miguel Angel Lisa MD [ [facility]] - 1 week HPI General Mode of arrival: ambulatory . Date/Time Provider Initiated Documentation: 08/07/24 11:15 . Limitations to Documentation: no limitations . Information obtained by: patient, RN notes reviewed and old records reviewed . HPI Narrative: 63-year-old male presents the ER after a accidental left hand injury at home prior to arrival. Patient reports that his finger got caught in a luc and amputated the tip of his left fourth finger. It is the distal tip with nail involvement. He does have a slow venous ooze upon arrival, bandage was placed in arm was elevated. His last tetanus vaccination was 6 years ago. Does have also a small superficial adjacent laceration to his pinky finger. He does take baby aspirin daily. Does have a history of diverticulosis, depression vitamin D deficiency hyperlipidemia hypertension. Related Data Home Medications ?Medication ?Instructions ?Recorded ?Confirmed acetaminophen 500 mg tablet 500 mg PO Q6H PRN 03/23/22 08/07/24 (Tylenol Extra Strength) ibuprofen 400 mg tablet 400 mg PO Q6H PRN 05/19/23 08/07/24 metformin 500 mg tablet 1,000 mg PO DAILY 06/05/23 08/07/24 aspirin 81 mg chewable tablet 81 mg PO DAILY 12/19/23 08/07/24 (Children's Aspirin) rosuvastatin 5 mg tablet 5 mg PO ONCE 12/19/23 08/07/24 lisinopril 5 mg tablet 5 mg PO DAILY 12/21/23 08/07/24 allopurinol 100 mg tablet 100 mg PO DAILY 06/26/24 08/07/24 cephalexin 500 mg tablet 500 mg PO BID 10 days #20 tabs 08/07/24 levofloxacin 500 mg tablet 500 mg PO DAILY 08/07/24 08/07/24 Previous Rx's ?Medication ?Instructions ?Recorded cephalexin 500 mg tablet 500 mg PO BID 10 days #20 tabs 08/07/24 Allergies Allergy/AdvReac Type Severity Reaction Status Date / Time fluoxetine (From Prozac) AdvReac Mild sweating Verified 08/07/24 11:26 General Stated Complaint: Orthopedic HENRIETTA: 3 Review of Systems Integumentary/Breasts Skin/Breast: Reports wounds Exam Extrem Left upper extremity: hand Details: laceration 4th digit radial aspect distal Details: irregular, avulsion, actively bleeding, involving muscle tissue, with motor nerve function intact and with sensation intact Hand/finger images: 2 1. Partial amputation of the distal tip of left ring finger. Partial nail avulsion. There is also a semicircular laceration medially. Course Vital Signs Vital signs: Vital Signs Temperature 36.6 C 08/07/24 11:26 Pulse 78 08/07/24 11:26 Respiratory Rate 15 08/07/24 11:26 Blood Pressure 138/87 08/07/24 11:26 Pulse Oximetry 98 08/07/24 11:26 Temperature 36.6 C 08/07/24 11:26 Temperature Source Tympanic 08/07/24 11:26 Pulse 78 08/07/24 11:26 Respiratory Rate 15 08/07/24 11:26 Blood Pressure 138/87 08/07/24 11:26 Blood Pressure Position Sitting 08/07/24 11:26 Pulse Oximetry 98 08/07/24 11:26 Oxygen Delivery Method Room Air 08/07/24 11:26 Oxygen Flow Rate 0 08/07/24 11:26 Pain Level 8 08/07/24 11:28 Procedure Laceration Laceration 1: Date of Procedure: 08/07/24 Time of procedure: 13:25 Provider that performed the procedure: Uma Lin Standard Time Out Performed: Yes Patient Consented: Verbally Site: hand Description: irregular and contaminated Depth: [id number] Local anesthetic: Lidocaine 1% and Bupivicaine 0.5% Amount of anesthesia used (mL): 4 Pre-repair:: wound explored and irrigated extensively Skin layer closed with: nylon (Prolene) Suture size: 5-0 Number of sutures:: 5 Technique: simple, interrupted Nerve Block 1st Nerve Block: Date of Procedure: 08/07/24 Time of procedure: 11:45 Provider that performed the procedure: Uma Lin Indication: Local pain control and Procedural Standard Time Out Performed: Yes Patient Consented: Verbally Local Anesthetic: Lidocaine 1% and Bupivicaine 0.5% Amount of anethetic used(mL): 4 Sterility: Emergent Laterality: Left Nerve Blocks: digital (4 sided ring block) Ultrasound: Not used. Procedure Tolerated: No Complications Procedure Outcome: Successful Medical Decision Making 63-year-old male presents the ER after a accidental left hand injury at home prior to arrival. Patient reports that his finger got caught in a luc and amputated the tip of his left fourth finger. It is the distal tip with nail involvement. He does have a slow venous ooze upon arrival, bandage was placed in arm was elevated. His last tetanus vaccination was 6 years ago. Does have also a small superficial adjacent laceration to his pinky finger. He does take baby aspirin daily. Does have a history of diverticulosis, depression vitamin D deficiency hyperlipidemia hypertension. Will perform a digital block, get an x-ray and a tetanus vaccination. Digital block performed with success, patient tolerated without complications. Anesthesia achieved. 1% lidocaine and 0.5% bupivacaine four sided ring block. Laceration cleaned with sterile saline and irrigated, scrubbed with chlorhexidine. 5 simple interrupted sutures placed to the medial laceration. Surgicel dressing applied to the amputation at the distal tip of the digit, Xeroform dressing and tube gauze. Bleeding controlled at this time. Instructed patient to leave on for at least 24 hours no longer than 3 days. Will have patient follow-up with orthopedics as he does not wish to follow-up with hand specialist at offsite facility due to financial reasons. He will get 2 g of cefazolin IV piggyback here in the department. Will send home with antibiotics and pain medication. I did discuss to be seen within the next week for follow-up care and suture removal and with additional evaluation and treatment if needed. Discussed signs of infection, repeat instructed to return for any red streaks, increased redness drainage increased pain or concerns. Patient given 2 g of cefazolin IV piggyback here in the department will send home with cephalexin 500 mg twice daily x 10 days. Patient was also given 4 tablets of morphine 15 mg IR for severe worsening pain after the anesthetic wears off. Instructed on no soaking. Allowing to air dry at least 1 to 2 hours a day. 1423: Patient began to bleed through the dressing prior to his discharge. Will apply TXA and observe. Bleeding controlled prior to discharge. Redressed with Xeroform gauze and tube gauze. A TXA soaked gauze was placed next to the skin. Surgicel dressing was removed. Finger was placed in a baseball splint. This text was generated using [email or web address] dictation system, please disregard any oddities of phrase or misspellings. Imaging Data Radiologic Study: Imaging: X-Ray Radiologist's impression: XR HAND LT COMPLETE EXAM: XR HAND LT COMPLETE CLINICAL HISTORY: 4th finger trauma, laceration. TECHNIQUE: 2D digital imaging was performed. Three views. COMPARISON: CR XR HAND RT COMPLETE from 11/10/2022 FINDINGS: BONES: Amputation of the tip of the ring finger. On portion of the tuft is amputated. Remaining portion of the tuft shows fracture fragments. No bony destructive lesion is seen. JOINTS: No dislocation present. Mild to moderate degenerative changes of the interphalangeal joints. SOFT TISSUE: Amputation of the distal portion of the ring finger. Large soft tissue defect. IMPRESSION: Large soft tissue defect with amputation of a portion of the tuft of the ring finger. 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 states he was taking a lot of ibuprofen r/t to the ITB and started to have some hematuria (3-4 weks ago 01/2021), so he stopped the IBU and the hematuria stopped. Pt. stated she informed the pt. PCP. HTN (hypertension) Left knee DJD s/p left TKA Surgical History Status post vasectomy Status post bilateral total hip replacement (09/01/21) Hx of colonoscopy History of surgery on lower extremity IT band History of left knee replacement Iliotibial band syndrome, left leg Distal Depo-Medrol injection: 01/20/22; 05/31/21; 01/01/21; 06/08/20 S/P Distal IT band lengthenin03/09/2021 Status post total left knee replacement (03/17/20) Status post arthroscopy of right knee (05/2013) Dr. Reed Family History Maternal Uncle Family history of factor V Leiden mutation Social History Smoking/Tobacco Use Status: Current every day Tobacco Type: smokeless tobacco Smoking risk assessment performed?: Yes Alcohol Intake: current Alcohol Intake frequency: a few times a week Alcohol type: beer and hard liquor Drug use: Never Substance use type: does not use Details: alcohol: t-1, one glass Housing: house Current gender identity: male Do you feel safe at home: Yes Do you feel safe in your relationship?: Yes Additional Social history: Unable to assess christina CIFUENTES Have you Been Recently Intoxicated or Drunk Within the Last 30 days?: No Have you Ever Experienced Previous Episodes of Alcohol Withdrawal?: No Have you ever Experienced Withdrawal Seizures?: No Have you ever Experienced Delirium Tremens(DT)s?: No Have you ever undergone Alcohol Rehabilitation Treatment (i.e, inpt ot outpatient treatment programs)?: No Have you ever Experienced Blackouts?: No Have you ever Combined Alcohol with other Downers within the last 90 days?: No Have you ever Combined Alcohol with any other Substance of Abuse during the last 90 days?: No Result: 0
[2024-08-07] MEDS: Diph,Pertuss(Acell),Tet Vac/Pf 0.5 ML SYR IM (11:34)
[2024-08-07] MEDS: Lidocaine 1% Multi-Dose 50 ML VIAL IJ (11:36)
[2024-08-07] MEDS: Bupivacaine 0.5% Pres-Free 30 ML VIAL IJ (11:36)
[2024-08-07] MEDS: ceFAZolin 2 GM/50 ML BAG IVPB (13:43)
[2024-08-07] MEDS: MORPHine IR 15 MG TAB, 4 TABS/BTL PO (14:19)
[2024-08-07] MEDS: Tranexamic Acid 1,000 MG/10 ML VIAL 500 MG NS (14:27)
[2024-08-07 14:42] VITALS: BP 139/95; PULSE 65; RESP 16; O2SAT 99
== END 2024-08-07 15:08 | disposition home or self-care (01) ==
PROVIDERS: Emergency Provider Registered Nurse Emergency; PCP Nurse Practitioner Family
DX: S68.125A Partial traumatic metacarpophalangeal amputation of left ring finger, initial encounter (principal); S62.635B Displaced fracture of distal phalanx of left ring finger, initial encounter for open fracture; E78.5 Hyperlipidemia, unspecified; I10 Essential (primary) hypertension; E11.9 Type 2 diabetes mellitus without complications; Z23 Encounter for immunization; Z79.84 Long term (current) use of oral hypoglycemic drugs; Z79.82 Long term (current) use of aspirin; W31.89XA Contact with other specified machinery, initial encounter; Y93.89 Activity, other specified; F17.290 Nicotine dependence, other tobacco product, uncomplicated
CPT/HCPCS: 12001; 90471; 90715; 96365; 99284; 73130; J0665; J0690; J2003

== ENCOUNTER 2025-01-30 19:49 | Outpatient (REF) | payer OTHER, MEDICARE, SELFPAY ==
[2025-01-30 19:35] LABS: COMMENT (LAB VIEW ONLY) 194.41 mg/dL; Microalb ug/mg Crea 6.4 ug/mg Cr
== END 2025-01-30 19:50 | disposition home or self-care (01) ==
LOC: NCHCN 19:49
PROVIDERS: PCP Nurse Practitioner Family; Visit Provider Nurse Practitioner Family
DX: E11.9 Type 2 diabetes mellitus without complications (principal)
CPT/HCPCS: 82043; 82570